=== PATIENT | female | born 1935 | race Caucasian/White ===

== ENCOUNTER 2019-06-25 23:11 | Observation (INO) | payer MEDICARE, OTHER ==
[2019-06-25] MEDS ORDERED: LIDOCAINE 1% INJ-PF (10 MG/ML) 30 ML SDV INJ ONE (23:32)
--- NOTE | 2019-06-25 23:38 | ER Document Report ---
ED Fall - General Chief Complaint: Facial Injury Stated Complaint: FALL Time Seen by Provider: 06/25/19 23:24 TRAVEL OUTSIDE OF THE [place] IN LAST 30 DAYS: No - HPI Notes: Patient is a 84-year-old female that presents to the emergency department for chief complaint of fall. Patient lives at home independently. She states she was sitting watching TV and believes she got up to go somewhere but cannot completely recall the events of the evening. Patient states that she woke up on the floor in the kitchen but is not sure how she got there. Patient does not remember falling or passing out. She remembers sitting in the chair and attempting to get up and walk with her walker. She is complaining of pain over her left eye and in her chin. She is not sure when her last tetanus vaccine was. She denies headache, vision changes, numbness, weakness, upper or lower extremity pain, chest pain and shortness of breath. She denies being on any blood thinning medications. Past Medical History: Hypertension, hyperlipidemia Past Surgical History: SBO Social History: Lives at home. Denies alcohol and tobacco use Family History: Reviewed and noncontributory for presenting illness Allergies: Reviewed, see documented allergy list. REVIEW OF SYSTEMS: CONSTITUTIONAL : No fever No chills No diaphoresis No recent illness EENT: No vision changes No congestion No sore throat Facial pain CARDIOVASCULAR: No chest pain No palpitations RESPIRATORY: No shortness of breath No cough No difficulty breathing GASTROINTESTINAL: No abdominal pain No nausea No vomiting No diarrhea GENITOURINARY: No dysuria No hematuria No difficulty urinating MUSCULOSKELETAL: No back pain No leg pain No arm pain SKIN: No rashes No lesions LYMPHATIC: No swollen, enlarged glands. NEUROLOGICAL: No lightheadedness No headache No weakness No paresthesias PSYCHIATRIC: No anxiety No depression PHYSICAL EXAMINATION: Vital signs reviewed, nursing noted reviewed. GENERAL: Well-appearing, well-nourished and in no acute distress. HEAD: Atraumatic, normocephalic. EYES: Periorbital ecchymosis on the left. No pain with ocular movement. PERRLA. Extraocular movements intact, sclera anicteric, conjunctiva are normal. ENT: Contusion to left eyebrow with tenderness, nasal bridge tenderness. No nasal septal hematoma. No epistaxis. No facial bone laxity. No dental fr actures. Nares patent, oropharynx clear without exudates. Moist mucous membranes. NECK:c-collar in place, no midline tenderness, supple without lymphadenopathy LUNGS:no chest wall tenderness, Breath sounds clear to auscultation bilaterally and equal. No wheezes rales or rhonchi. HEART: Regular rate and rhythm without murmurs ABDOMEN: Soft, nontender, normoactive bowel sounds. No rebound, guarding, or rigidity. No masses appreciated. EXTREMITIES: pelvis stable, no hip tenderness, no longbone deformity or tenderness, good range of motion, no pitting or edema. NEUROLOGICAL: No focal neurological deficits. Moves all extremities spontaneously Motor and sensory grossly intact on exam. PSYCH: Normal mood, normal affect. SKIN: Warm, Dry, normal turgor, 2.0 cm full-thickness stellate laceration to chin with mild bleeding - Related data Allergies/Adverse Reactions: ciprofloxacin [From Cipro] Adverse Reaction (Intermediate, Verified 04/10/15 02:30) Change in behavior ciprofloxacin HCl [From Cipro] Adverse Reaction (Intermediate, Verified 04/10/15 02:30) Change in behavior Past Medical History - Social History Smoking Status: Unknown if Ever Smoked Family History: Reviewed & Not Pertinent Patient has suicidal ideation: No Patient has homicidal ideation: No - Past Medical History Cardiac Medical History: Reports: Hx Hypercholesterolemia, Hx Hypertension Denies: Hx Heart Attack Pulmonary Medical History: Denies: Hx Asthma Neurological Medical History: Denies: Hx Cerebrovascular Accident, Hx Seizures Renal/ Medical History: Denies: Hx Peritoneal Dialysis Malignancy Medical History: Reports: Hx Colorectal Cancer GI Medical History: Denies: Hx Hepatitis, Hx Hiatal Hernia, Hx Ulcer Psychiatric Medical History: Reports: Hx Depression Infectious Medical History: Denies: Hx Hepatitis Past Surgical History: Reports: Hx Abdominal Surgery - colon, Hx Bowel Surgery, Hx Hysterectomy. Denies: Hx Mastectomy, Hx Open Heart Surgery, Hx Pacemaker - Immunizations Immunizations up to date: Yes Hx Diphtheria, Pertussis, Tetanus Vaccination: No - <10 yrs Physical Exam - Vital signs Vitals: Resp BP 17 173/67 H 06/25/19 23:26 06/25/19 23:26 Course - Re-evaluation Re-evalutation: 06/25/19 23:39 Vitals reviewed. Nursing notes reviewed. Patient is alert and mentating. She has no focal neurologic deficits. She does not recall how she fell or the events that led up to her getting into the kitchen. This is concerning for possible closed head injury or syncope. Patient placed on telemetry monitoring. She currently denies wanting any medication for pain. Tetanus vaccine will be updated. 06/26/19 01:10 Patient's work-up is unremarkable. She has no acute anemia. Patient's renal function is stable without severe lecture lites derangements. She does have a negative troponin. Her EKG shows sinus rhythm without significant change from prior. It is unclear at this time if patient had a syncopal episode which caused her to fall or is amnestic from her closed head injury. There are no signs of intracranial hemorrhage or facial/cervical spine fractures. Cervical collar has been removed. At this point patient will be admitted to the hospital for telemetry monitoring for possible syncopal event as well as close head i njury. Care discussed with Dr. Garces who accepts admission. Laboratory 06/25/19 06/26/19 06/26/19 23:45 00:15 00:15 WBC 11.5 H RBC 4.27 Hgb 13.3 Hct 39.8 MCV 93 MCH 31.2 MCHC 33.5 RDW 13.0 Plt Count 223 Seg Neutrophils % 75.6 Lymphocytes % 14.2 Monocytes % 7.4 Eosinophils % 2.4 Basophils % 0.4 Absolute Neutrophils 8.7 H Absolute Lymphocytes 1.6 Absolute Monocytes 0.9 Absolute Eosinophils 0.3 Absolute Basophils 0.0 Sodium 137.2 Potassium 3.4 L Chloride 105 Carbon Dioxide 22 Anion Gap 10 BUN 19 Creatinine 0.87 Est GFR ( Amer) > 60 Est GFR (Non-Af Amer) > 60 Glucose 120 H Calcium 8.2 L Total Bilirubin 0.3 Direct Bilirubin 0.2 Neonat Total Bilirubin Not Reportable Neonat Direct Bilirubin Not Reportable Neonat Indirect Bili Not Reportable AST 19 ALT 13 Alkaline Phosphatase 85 Troponin I Total Protein 6.3 Albumin 3.8 Urine Color STRAW Urine Appearance CLEAR Urine pH 6.0 Ur Specific [place] 1.006 Urine Protein NEGATIVE Urine Glucose (UA) NEGATIVE Urine Ketones NEGATIVE Urine Blood NEGATIVE Urine Nitrite NEGATIVE Urine Bilirubin NEGATIVE Urine Urobilinogen NEGATIVE Ur Leukocyte Esterase NEGATIVE Urine WBC (Auto) 2 Urine Bacteria (Auto) TRACE Squamous Epi Cells Auto <1 Urine Mucus (Auto) RARE Urine Ascorbic Acid NEGATIVE 06/26/19 00:15 WBC RBC Hgb Hct MCV MCH MCHC RDW Plt Count Seg Neutrophils % Lymphocytes % Monocytes % Eosinophils % Basophils % Absolute Neutrophils Absolute Lymphocytes Absolute Monocytes Absolute Eosinophils Absolute Basophils Sodium Potassium Chloride Carbon Dioxide Anion Gap BUN Creatinine Est GFR ( Amer) Est GFR (Non-Af Amer) Glucose Calcium Total Bilirubin Direct Bilirubin Neonat Total Bilirubin Neonat Direct Bilirubin Neonat Indirect Bili AST ALT Alkaline Phosphatase Troponin I < 0.012 Total Protein Albumin Urine Color Urine Appearance Urine pH Ur Specific [place] Urine Protein Urine Glucose (UA) Urine Ketones Urine Blood Urine Nitrite Urine Bilirubin Urine Urobilinogen Ur Leukocyte Esterase Urine WBC (Auto) Urine Bacteria (Auto) Squamous Epi Cells Auto Urine Mucus (Auto) Urine Ascorbic Acid Cervical Spine CT 06/25/19 23:24 IMPRESSION: 1. No evidence of acute osseous injury involving the cervical spine. 2. Mild degenerative changes of the cervical spine as described above. Facial Bones CT 06/25/19 23:24 IMPRESSION: 1. No acute facial fractures Head CT 06/25/19 23:24 IMPRESSION: 1. There is no evidence of acute intracranial pathology. 2. 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 3. Soft tissue swelling anterior to the left maxilla. A nondisplaced left nasal bone fracture is not excluded. Chest X-Ray 06/25/19 23:31 IMPRESSION: No evidence of acute intrathoracic disease. No significant interval change when compared to the prior study. 06/26/19 02:38 - Vital Signs Vital signs: Temp Pulse Resp BP Pulse Ox 18 174/69 H 06/26/19 01:01 06/26/19 01:01 - Laboratory Result Diagrams: 06/26/19 00:15 06/26/19 00:15 Laboratory results interpreted by me: 06/26/19 06/26/19 00:15 00:15 WBC 11.5 H Absolute Neutrophils 8.7 H Potassium 3.4 L Glucose 120 H Calcium 8.2 L - EKG Interpretation by Me Additional EKG results interpreted by me: 06/26/19 01:11 Interpreted by myself [id number]: Normal sinus rhythm, rate 81, normal axis, no significant change from 05/25/2013, no STEMI. Procedures - Laceration/Wound Repair Face Time completed: 02:37 Wound length (cm): 2.0 Wound's Depth, Shape: Stellate Laceration pre-procedure: Sterile PPE donned, Sterile drapes applied, Shur-Clens applied Anesthetic type: 2% Lidocaine Volume Anesthetic (mLs): 2 Wound explored: Clean Irrigated w/ Saline (mLs): 100 Wound Repaired With: Sutures Suture Size/Type: 5:0, Nylon Number of Sutures: 2 - simple interrupted Layer Closure?: No Complications: No Discharge - Discharge Clinical Impression: Chin laceration Qualifiers: Encounter type: initial encounter Qualified Code(s): S01.81XA - Laceration without foreign body of other part of head, initial encounter Facial contusion Qualifiers: Encounter type: initial encounter Qualified Code(s): S00.83XA - Contusion of other part of head, initial encounter Closed head injury Qualifiers: Encounter type: initial encounter Qualified Code(s): S09.90XA - Unspecified injury of head, initial encounter Syncope Qualifiers: Syncope type: unspecified Qualified Code(s): R55 - Syncope and collapse Condition: Stable Disposition: ADMITTED OBSERVATION Admitting Provider: Dez (Hospitalist) Unit Admitted: Telemetry
[2019-06-25] MEDS ORDERED: DIPH/PERTUSS(ACELL)/TETANUS VAC/PF 0.5 ML SYR (>=10YO) IM ONE (23:39)
[2019-06-26 00:03] LABS: APPEARANCE,URINE CLEAR; BILIRUBIN,URINE NEGATIVE (NEGATIVE); COLOR,URINE STRAW; GLUCOSE, URINE NEGATIVE (NEGATIVE); KETONES,URINE NEGATIVE (NEGATIVE); LEUKOCYTE ESTERASE,URINE NEGATIVE (NEGATIVE); NITRITE,URINE NEGATIVE (NEGATIVE); PROTEIN,URINE NEGATIVE (NEGATIVE); URINE SPECIFIC GRAVITY 1.006; UROBILINOGEN,URINE NEGATIVE mg/dL (<2.0)
--- NOTE | 2019-06-26 00:11 | RADIOLOGY REPORT (SQ) ---
EXAM DESCRIPTION: X-ray single view chest. CLINICAL HISTORY: 84 years Female, syncope COMPARISON: 10/02/2014 TECHNIQUE: Single portable x-ray view of the chest performed on 06/25/2019 at 11:57 PM FINDINGS: The lungs are well expanded and are clear. There is no evidence of a pneumothorax. The cardiac silhouette is normal in size and configuration. The mediastinal contours are normal. No acute osseous abnormality is identified. No focal soft tissue abnormalities are seen. Lines and tubes: None. IMPRESSION: No evidence of acute intrathoracic disease. No significant interval change when compared to the prior study.
--- NOTE | 2019-06-26 00:29 | RADIOLOGY REPORT (SQ) ---
EXAM: CT head without IV contrast CLINICAL DATA: 84-year-old female status post trauma TECHNICAL DATA: Multiple axial CT images of the brain were performed followed by sagittal and coronal reconstructed images. The CT study is performed according to ALARA (as low as reasonably achievable) or ALARA/IMAGE GENTLY, with automatic adjustment of mA and/or kV according to patient size. Performed on: 06/26/2019 at 12:11 AM Comparisons: 05/25/2013. FINDINGS: There is no evidence of mass, acute mass effect or midline shift. There are no acute extra-axial fluid collections. There is no evidence of acute intracranial hemorrhage. The cerebral sulci and ventricles are prominent consistent with mild to moderate cerebral volume loss. There are scattered areas of decreased attenuation within the subcortical and periventricular white matter most likely due to mild chronic microangiopathy. There are old small bilateral lacunar infarcts particularly in the left basal ganglia. There is patchy mucosal thickening of the paranasal sinuses. The mastoid air cells are clear. The orbital contents are grossly unremarkable. A nondisplaced left nasal bone fracture is not excluded. There is mild soft tissue swelling anterior to the left maxilla. There are calcifications along the cavernous carotid arteries IMPRESSION: 1. There is no evidence of acute intracranial pathology. 2. 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 3. Soft tissue swelling anterior to the left maxilla. A nondisplaced left nasal bone fracture is not excluded.
[2019-06-26 00:32] LABS: ABSOLUTE EOSINOPHILS # (AUTO) 0.3 10^3/uL (0.0-0.6); ABSOLUTE LYMPHOCYTES (AUTO) 1.6 10^3/uL (0.5-4.7); ABSOLUTE MONOCYTES (AUTO) 0.9 10^3/uL (0.1-1.4); ABSOLUTE NEUT (AUTO) 8.7 10^3/uL (1.7-8.2); BASOPHILS % (AUTO) 0.4 % (0-2); EOSINOPHILS % (AUTO) 2.4 % (0-6); HEMATOCRIT 39.8 % (36.0-47.0); HEMOGLOBIN 13.3 g/dL (12.0-15.5); LYMPHOCYTES % (AUTO) 14.2 % (13-45); MEAN CORPUSCULAR HEMOGLOBIN 31.2 pg (27.0-33.4); MEAN CORPUSCULAR HGB CONC 33.5 g/dL (32.0-36.0); MEAN CORPUSCULAR VOLUME 93 fl (80-97); MONOCYTES % (AUTO) 7.4 % (3-13); PLATELET COUNT 223 10^3/uL (150-450); RED BLOOD COUNT 4.27 10^6/uL (3.72-5.28); SEGMENTED NEUTROPHILS % (AUTO) 75.6 % (42-78); TOTAL CELLS COUNTED % (AUTO) 100 %; WHITE BLOOD COUNT 11.5 10^3/uL (4.0-10.5)
--- NOTE | 2019-06-26 00:36 | RADIOLOGY REPORT (SQ) ---
EXAM DESCRIPTION: [facility]: CT MAXILLOFACIAL WITHOUT IV CONTRAST CLINICAL HISTORY: 84 years Female; trauma TECHNIQUE: High resolution axial CT of the face without contrast, with sagittal and coronal reformatted images. All CT scans at this facility use dose modulation, iterative reconstruction, and/or weight based dosing when appropriate to reduce radiation dose to as low as reasonably achievable. COMPARISON: None. FINDINGS: Facial bones are intact. Mandible is intact. Mucosal thickening is noted in the maxillary sinuses and ethmoid air cells. Mastoids are clear. Both globes are aphakic. No retro-orbital hematoma. IMPRESSION: 1. No acute facial fractures
--- NOTE | 2019-06-26 00:43 | RADIOLOGY REPORT (SQ) ---
EXAM: CT cervical spine without intravenous contrast CLINICAL DATA: 84-year-old female. TECHNICAL DATA: Multiple high-resolution thin axial CT images were performed through the status post trauma spine followed by sagittal and coronal reconstructed images. The CT study is performed according to ALARA (as low as reasonably achievable) or ALARA/IMAGE GENTLY, with automatic adjustment of mA and/or kV according to patient size. Performed on: 06/26/2019 at 12:21 AM COMPARISONS: None. FINDINGS: The cervical vertebrae are normal in height. There is normal alignment of the vertebrae. There is mild to moderate disc space narrowing throughout the cervical spine most pronounced at C3-C4 and C6-C7. Bone mineralization is within normal limits. The atlanto-axial articulation is preserved and the odontoid process is intact. There is normal alignment of the facet joints on the parasagittal images. There are mild degenerative changes of the facet joints. There is no evidence of acute fracture or subluxation. There is mild C5-C6 canal stenosis secondary to a disc osteophyte complex. There is right C5-C6 neural foraminal stenosis secondary to uncovertebral joint and facet joint hypertrophy. The paravertebral and paraspinal soft tissues are unremarkable. The lung apices are clear. IMPRESSION: 1. No evidence of acute osseous injury involving the cervical spine. 2. Mild degenerative changes of the cervical spine as described above.
[2019-06-26 00:56] LABS: ALBUMIN 3.8 g/dL (3.5-5.0); ALKALINE PHOSPHATASE 85 U/L (38-126); ANION GAP 10 (5-19); ASPARTATE AMINO TRANSFERASE 19 U/L (14-36); BILIRUBIN,DIRECT 0.2 mg/dL (0.0-0.4); BILIRUBIN,TOTAL 0.3 mg/dL (0.2-1.3); BLOOD UREA NITROGEN 19 mg/dL (7-20); CALCIUM 8.2 mg/dL (8.4-10.2); CARBON DIOXIDE 22 mmol/L (22-30); CHLORIDE 105 mmol/L (98-107); GLUCOSE 120 mg/dL (75-110); POTASSIUM 3.4 mmol/L (3.6-5.0); TOTAL PROTEIN 6.3 g/dL (6.3-8.2)
[2019-06-26] MEDS ORDERED: MAGNESIUM HYDROXIDE SUSP 30 ML UDCUP PO PRN (01:38)
[2019-06-26] MEDS ORDERED: ACETAMINOPHEN 325 MG TABLET PO PRN (01:38)
[2019-06-26] MEDS ORDERED: MAG HYDROX/AL HYDROX/SIMETH SUSP 30 ML UDCUP PO PRN (01:38)
[2019-06-26] MEDS ORDERED: ONDANSETRON HCL INJ/PF 4 MG/2 ML SDV IV PRN (01:38)
[2019-06-26] MEDS ORDERED: LIDOCAINE 2% INJ (20 MG/ML) 20 ML MDV ONE (01:53)
[2019-06-26] MEDS ORDERED: DIPH/PERTUSS(ACELL)/TETANUS VAC/PF 0.5 ML SYR (>=10YO) IM ONE (04:15)
[2019-06-26] MEDS: NORMAL SALINE 1000 ML 1,000 ML IV PRN ×2 (05:54→19:00)
--- NOTE | 2019-06-26 06:19 | PDOC H&P ---
History of Present Illness Admission Date/PCP: 06/26/19 01:29 MICHELLE VAZQUEZ MD Patient complains of: Fall and head injury History of Present Illness: SHADI BABCOCK is a 84 year old female with history of multiple medical problems that will be mentioned below who presented to the emergency room with acute onset of fall with subsequent head injury and left periorbital and chin contusion with chin laceration that was repaired in the ER with 2 sutu res. The patient was apparently in her kitchen and hit her garbage can when she later noted blood on the floor. She does not remember certain. And therefore she likely had a brief syncopal episode. She denies any paresthesias or focal muscle weakness or chest pain or dyspnea or palpitations prior to her fall. No nausea vomiting or abdominal pain. No other bleeding diathesis. Upon presentation to the emergency room, blood pressure was 173/67 with a pulse 76 respiratory rate of 17, temperature 97.6 later and pulse 7093% on room air. Labs revealed WBC of 11.5 with absolute neutrophils of 8.7 with normal hemoglobin hematocrit. MP was remarkable for hypokalemia of 3.4. UA was unremarkable. EKG showed normal sinus rhythm with a rate of 81 with Q waves in lead III. Portable chest x-ray showed no acute cardiopulmonary disease. Head CT scan revealed no acute intracranial pathology but showed mild to moderate cerebral atrophy with chronic microangiopathy and old bilateral lacunar in farctions with soft tissue swelling anterior to the maxilla with nondisplaced left nasal bone fracture is not excluded. A facial bone CT however showed no acute facial fracture. C-spine CT showed mild degenerative changes of the C- spine with no acute osseous injury. The patient had her DTaP updated. She will be admitted to an observation telemetry bed for further evaluation and management Past Medical History Cardiac Medical History: Reports: Hyperlipidema, Hypertension Denies: Myocardial Infarction Pulmonary Medical History: Denies: Asthma Neurological Medical History: Denies: Seizures Malignancy Medical History: Reports: Colorectal Cancer GI Medical History: Denies: Hepatitis, Hiatal Hernia Psychiatric Medical History: Reports: Depression Hematology: Denies: Anemia, Sickle Cell Disease Past Surgical History Past Surgical History: Reports: Hysterectomy Denies: Amputation, Mastectomy, Pacemaker Social History Smoking Status: Never Smoker Frequency of Alcohol Use: None Hx Recreational Drug Use: No Hx Prescription Drug Abuse: No Family History Family History: Malignancy - Brother with colon cancer and sister with breast cancer Parental Family History Reviewed: Yes Children Family History Reviewed: Yes Sibling(s) Family History Reviewed.: Yes Medication/Allergy Home Medications: Amitriptyline HCl [Elavil 50 mg Tablet] 1 tab PO QHS 04/10/15 Aspirin [Aspirin 81 mg Chewable Tablet] 1 tab PO DAILY 04/10/15 Cephalexin [Keflex 250 MG Capsule] 250 mg PO .CLARIFY DOSE QHS 04/10/15 Diazepam [Valium 5 mg Tablet] 5 mg PO QHS 04/10/15 Diltiazem HCl [Diltiazem 24Hr ER (LA)] 300 mg PO DAILY 04/10/15 Paroxetine HCl 20 tab PO .CLARIFY DOSE QHS 04/10/15 Perphenazine 1 tab PO .CLARIFY DOSE QHS 04/10/15 Simvastatin [Zocor 10 mg Tablet] 10 tab PO QHS 04/10/15 Allergies/Adverse Reactions: ciprofloxacin [From Cipro] Adverse Reaction (Intermediate, Verified 04/10/15 02:30) Change in behavior ciprofloxacin HCl [From Cipro] Adverse Reaction (Intermediate, Verified 04/10/15 02:30) Change in behavior Review of Systems Review of Systems: As per history of present illness. All pertinent systems were reviewed above. Constitutional, HEENT, cardiovascular, respiratory, GI, , musculoskeletal, neuro, psychiatric, endocrine, integumentary and hematologic systems were reviewed and are otherwise negative/unremarkable except for positive findings mentioned above in the HPI. Physical Exam Vital Signs: Temp Pulse Resp BP Pulse Ox 97.6 F 81 20 166/71 H 93 06/26/19 05:11 06/26/19 05:11 06/26/19 05:11 06/26/19 05:11 06/26/19 05:11 Intake & Output 06/24/19 06/25/19 06/26/19 06:59 06:59 06:59 Weight 69.1 kg Exam: Generally: Pleasant elderly female in no acute distress Vital signs-as listed Head - normocephalic with left periorbital, nasal and left cheek and contusions as well as mid chin laceration status post repair with 2 sutures.. Pupils - equal, round and reactive to light and accommodation. Extraocular movements are intact. No scleral icterus. Oropharynx - moist mucous membranes and tongue. No pharyngeal erythema or exudate. Neck - supple. No JVD. Carotid pulses 2+ bilaterally. No carotid bruits. No palpable thyromegaly or lymphadenopathy. Cardiovascular - regular rate and rhythm. Normal S1 and S2. No murmurs, gallops or rubs. Lungs - clear to auscultation bilaterally. Abdomen - soft and nontender. Positive bowel sounds. No palpable organomegaly or masses. Extremities - no pitting edema, clubbing or cyanosis. Neuro - grossly non-focal. Skin - no rashes. Breast, pelvic and rectal - deferred Results Laboratory Results: 06/26/19 00:15 06/26/19 00:15 06/25/19 06/26/19 06/26/19 23:45 00:15 00:15 WBC 11.5 H RBC 4.27 Hgb 13.3 Hct 39.8 MCV 93 MCH 31.2 MCHC 33.5 RDW 13.0 Plt Count 223 Seg Neutrophils % 75.6 Lymphocytes % 14.2 Monocytes % 7.4 Eosinophils % 2.4 Basophils % 0.4 Absolute Neutrophils 8.7 H Absolute Lymphocytes 1.6 Absolute Monocytes 0.9 Absolute Eosinophils 0.3 Absolute Basophils 0.0 Sodium 137.2 Potassium 3.4 L Chloride 105 Carbon Dioxide 22 Anion Gap 10 BUN 19 Creatinine 0.87 Est GFR ( Amer) > 60 Est GFR (Non-Af Amer) > 60 Glucose 120 H Calcium 8.2 L Total Bilirubin 0.3 AST 19 Alkaline Phosphatase 85 Total Protein 6.3 Albumin 3.8 TSH Urine Color STRAW Urine Appearance CLEAR Urine pH 6.0 Ur Specific [place] 1.006 Urine Protein NEGATIVE Urine Glucose (UA) NEGATIVE Urine Ketones NEGATIVE Urine Blood NEGATIVE Urine Nitrite NEGATIVE Ur Leukocyte Esterase NEGATIVE Urine WBC (Auto) 2 06/26/19 00:15 WBC RBC Hgb Hct MCV MCH MCHC RDW Plt Count Seg Neutrophils % Lymphocytes % Monocytes % Eosinophils % Basophils % Absolute Neutrophils Absolute Lymphocytes Absolute Monocytes Absolute Eosinophils Absolute Basophils Sodium Potassium Chloride Carbon Dioxide Anion Gap BUN Creatinine Est GFR ( Amer) Est GFR (Non-Af Amer) Glucose Calcium Total Bilirubin AST Alkaline Phosphatase Total Protein Albumin TSH 1.34 Urine Color Urine Appearance Urine pH Ur Specific [place] Urine Protein Urine Glucose (UA) Urine Ketones Urine Blood Urine Nitrite Ur Leukocyte Esterase Urine WBC (Auto) 06/26/19 00:15 Troponin I < 0.012 Impressions: Cervical Spine CT 06/25/19 23:24 IMPRESSION: 1. No evidence of acute osseous injury involving the cervical spine. 2. Mild degenerative changes of the cervical spine as described above. Facial Bones CT 06/25/19 23:24 IMPRESSION: 1. No acute facial fractures Head CT 06/25/19 23:24 IMPRESSION: 1. There is no evidence of acute intracranial pathology. 2. 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 3. Soft tissue swelling anterior to the left maxilla. A nondisplaced left nasal bone fracture is not excluded. Chest X-Ray 06/25/19 23:31 IMPRESSION: No evidence of acute intrathoracic disease. No significant interval change when compared to the prior study. Assessment and Plan - Diagnosis (1) Syncope Qualifiers: Syncope type: unspecified Qualified Code(s): R55 - Syncope and collapse Is this a current diagnosis for this admission?: Yes Plan: The patient was admitted to an observation medically monitored bed. Will check her orthostatics q.12 hours. Will obtain a bilateral carotid Doppler and 2D echo. The patient will be gently hydrated with IV normal saline and monitored for arrhythmias. Differential diagnosis would include neuraly mediated syncope, cardiogenic, arrhythmias related, orthostatic hypotension and less likely hypoglycemia. (2) Closed head injury Qualifiers: Encounter type: initial encounter Qualified Code(s): S09.90XA - Unspecified injury of head, initial encounter Is this a current diagnosis for this admission?: Yes Plan: The patient had syncope with head injury and and facial contusions that would require further observation for potential concussion. (3) Facial contusion Qualifiers: Encounter type: initial encounter Qualified Code(s): S00.83XA - Contusion of other part of head, initial encounter Is this a current diagnosis for this admission?: Yes Plan: In the setting of syncope, she will need further monitoring for the possibility of cerebral concussion. (4) Depression Is this a current diagnosis for this admission?: Yes Plan: We will continue Paxil and hold off amitriptyline and cut down Valium dose given for anxiety and insomnia. (5) Hypertension Is this a current diagnosis for this admission?: Yes Plan: We will continue diltiazem ER (6) DVT prophylaxis Is this a current diagnosis for this admission?: Yes Plan: Subcutaneous Lovenox - Time Time Spent with patient: 35 or more minutes Medications reviewed and adjusted accordingly: Yes Anticipated discharge: Home Within: within 24 hours - Inpatient Certification Post Hospital Care: D/C or Transfer Summary - Plan Summary Plan Summary: The plan of care was discussed in details with the patient. I answered all questions. The patient agreed to proceed with the above-mentioned plan. The patient is presumably full code. This note was created by [employer] dictating software and may contain typo errors that may have not been proofread.
[2019-06-26 06:40] LABS: ANION GAP 11 (5-19); BLOOD UREA NITROGEN 17 mg/dL (7-20); CALCIUM 9.4 mg/dL (8.4-10.2); CARBON DIOXIDE 26 mmol/L (22-30); CHLORIDE 103 mmol/L (98-107); CREATINE KINASE 117 U/L (30-135); GLUCOSE 113 mg/dL (75-110); POTASSIUM 3.7 mmol/L (3.6-5.0)
[2019-06-26 06:50] LABS: CREATINE KINASE MB 2.23 ng/mL (<4.55)
[2019-06-26 06:53] LABS: TROPONIN I < 0.012 ng/mL
[2019-06-26] MEDS: FAMOTIDINE 20 MG TABLET PO SCH ×2 (09:14→22:43)
[2019-06-26] MEDS: ENOXAPARIN SODIUM INJ 40 MG/0.4 ML DISP.SYRIN SUBCUT SCH (09:14)
--- NOTE | 2019-06-26 09:32 | Progress Note ---
Provider Note Provider Note: June 26, 2019-patient admitted earlier this a.m. for syncope. Awaiting cardiology consultation. Patient with no concerns or complaints at this time.
--- NOTE | 2019-06-26 10:12 | EKG REPORT ---
SEVERITY:- NORMAL ECG - SINUS RHYTHM : Confirmed by: Nancy Love MD 26-Jun-2019 10:11:38
--- NOTE | 2019-06-26 12:31 | RADIOLOGY REPORT (SQ) ---
EXAM DESCRIPTION: CAROTID DOPPLER COMPLETED DATE/TIME: 06/26/2019 12:14 pm REASON FOR STUDY: Syncope COMPARISON: None. TECHNIQUE: Grayscale ultrasound, Doppler velocity and spectra, and color Doppler images acquired of the extra-cranial carotid and vertebral arteries. Images stored on PACS. LIMITATIONS: None. FINDINGS: RIGHT CAROTID CCA Velocities: Within normal limits. ICA Velocities Peak systolic 1.59 m/s. End diastolic 0.24 m/s. Proximal ICA/CCA peak systolic ratio 1.7. Mild calcified plaque in the common carotid artery and carotid bulb. LEFT CAROTID CCA Velocities: Within normal limits. ICA Velocities Peak systolic 0.85 m/s. End diastolic 0.24 m/s. Proximal ICA/CCA peak systolic ratio 0.8. Spectra normal. No significant plaque. VERTEBRAL ARTERIES: Antegrade flow. Normal waveforms. SUBCLAVIAN ARTERIES: No finding. OTHER: No other significant finding. IMPRESSION: 50 to 69% narrowing in the right internal carotid artery. Based on velocities in graysc julius images this is closer to 50%. No hemodynamically significant stenosis on the left. COMMENT: Quality ID #[id number]: Velocity criteria are extrapolated from the diameter data as defined by t he Society of Radiologists in Ultrasound Consensus Conference. Radiology 2003: 229; 340-346. TECHNICAL DOCUMENTATION: JOB ID: [id number] [employer]- All Rights Reserved Reading location - IP/workstation name: [email or web address]
[2019-06-26 12:57] LABS: CREATINE KINASE MB 2.03 ng/mL (<4.55)
[2019-06-26 13:02] LABS: TROPONIN I < 0.012 ng/mL
[2019-06-26] MEDS: DILTIAZEM HCL 180 MG CAPSULE.CR PO SCH (13:24)
[2019-06-26] MEDS: DILTIAZEM HCL 120 MG CAP.SR.24H PO SCH (13:24)
[2019-06-26 19:06] LABS: CREATINE KINASE MB 1.88 ng/mL (<4.55)
[2019-06-26 19:09] LABS: TROPONIN I < 0.012 ng/mL
--- NOTE | 2019-06-26 21:19 | XCELERA REPORT ---
[address] [address] Transthoracic Echocardiogram Report Name: SHADI BABCOCK Age: 84 yrs Gender: Female : 1935 Patient Status: Inpatient Patient Location: [address] [place], [place] [id number] Study Date: 06/26/2019 09:52 AM Height: 63 in Weight: 152 lb BSA: 1.7 m2 Procedure: A two-dimensional transthoracic echocardiogram with color flow Doppler was performed. Study Quality: Fair. Reason For Study: Syncope History: SYNCOPE. Ordering Physician: DICK OLIVAS Performed By: Cleopatra Blue Interpretation Summary The left ventricle is normal in size. There is normal left ventricular wall thickness. The left ventricular ejection fraction is within normal limits. LV EF is 65% Doppler measurements suggest impaired left ventricular relaxation, which is associated with grade I/IV or mild diastolic dysfunction The left ventricular wall motion is normal. There is no thrombus. No ASD ,VSD ,or PFO seen The right ventricle is normal in size and function. The right atrium is normal. The left atrial size is normal. There is no evidence of mitral valve prolapse. There is no vegetation seen on the mitral valve. There is no mitral valve stenosis. There is no mitral regurgitation noted. There is no aortic valvular vegetation. There is no aortic valve stenosis There is no LVOT obstruction. There is a mild amount of aortic regurgitation There is no tricuspid stenosis. There is a trace amount of tricuspid regurgitation There is mild pulmonary hypertension by echo RSVP is equal to 34 mm of Hg , with RA mean of 10. There is no pulmonic valvular stenosis. There is a trace amount of pulmonic regurgitation The aortic root is normal size. The inferior vena cava appeared normal and decreased > 50% with respiration (RAP 5-10 mmHg) There is no pericardial effusion. MMode/2D Measurements & Calculations RVDd: 2.8 cm LVIDd: 3.9 cm FS: 40.4 % Ao root diam: 2.6 cm IVSd: 1.0 cm LVIDs: 2.3 cm EDV(Teich): 66.7 ml Ao root area: 5.2 cm2 LVPWd: 1.0 cm ESV(Teich): 18.9 ml LA dimension: 3.1 cm EF(Teich): 71.7 % Doppler Measurements & Calculations MV E max grecia: MV P1/2t max grecia: Ao V2 max: AI max grecia: 101.7 cm/sec 103.2 cm/sec 207.5 cm/sec 331.2 cm/sec MV A max grecia: MV P1/2t: 85.0 msec Ao max PG: AI max P.3 cm/sec MVA(P1/2t): 2.6 cm2 17.2 mmHg 43.9 mmHg MV E/A: 0.76 MV dec slope: AI dec slope: 203.9 cm/sec2 355.6 cm/sec2 AI P1/2t: MV dec time: 0.27 sec 475.8 msec LV V1 max PG: PA V2 max: TR max grecia: AV P1/2t-pr_phl: 6.4 mmHg 93.8 cm/sec 247.0 cm/sec 475.8 msec LV V1 max: PA max P.5 mmHg TR max P.4 cm/sec 24.4 mmHg MV P1/2t-pr_phl: 85.0 msec Left Ventricle The left ventricle is normal in size. There is normal left ventricular wall thickness. The left ventricular ejection fraction is within normal limits. LV EF is 65%. Doppler measurements suggest impaired left ventricular relaxation, which is associated with grade I/IV or mild diastolic dysfunction. The left ventricular wall motion is normal. There is no thrombus. No ASD ,VSD ,or PFO seen. Right Ventricle The right ventricle is normal in size and function. Atria The right atrium is normal. The left atrial size is normal. Mitral Valve There is no evidence of mitral valve prolapse. There is no vegetation seen on the mitral valve. There is no mitral valve stenosis. There is no mitral regurgitation noted. Aortic Valve There is no aortic valvular vegetation. There is no aortic valve stenosis. There is no LVOT obstruction. There is a mild amount of aortic regurgitation. Tricuspid Valve There is no tricuspid stenosis. There is a trace amount of tricuspid regurgitation. There is mild pulmonary hypertension by echo. RSVP is equal to 34 mm of Hg , with RA mean of 10. Pulmonic Valve There is no pulmonic valvular stenosis. There is a trace amount of pulmonic regurgitation. Great Vessels The aortic root is normal size. The inferior vena cava appeared normal and decreased > 50% with respiration (RAP 5-10 mmHg). Effusions There is no pericardial effusion. : DICK OLIVAS > Nancy Love
[2019-06-26] MEDS ORDERED: AMITRIPTYLINE HCL 50 MG TABLET PO SCH (22:00)
[2019-06-26] MEDS ORDERED: PAROXETINE HCL 20 MG TABLET PO SCH (22:00)
[2019-06-26] MEDS: DIAZEPAM 5 MG TABLET PO SCH (22:43)
[2019-06-27 06:12] LABS: ABSOLUTE BASOPHILS # (AUTO) 0.1 10^3/uL (0.0-0.2); ABSOLUTE EOSINOPHILS # (AUTO) 0.3 10^3/uL (0.0-0.6); ABSOLUTE LYMPHOCYTES (AUTO) 2.1 10^3/uL (0.5-4.7); ABSOLUTE MONOCYTES (AUTO) 0.8 10^3/uL (0.1-1.4); ABSOLUTE NEUT (AUTO) 4.2 10^3/uL (1.7-8.2); BASOPHILS % (AUTO) 1.2 % (0-2); EOSINOPHILS % (AUTO) 4.2 % (0-6); HEMATOCRIT 39.6 % (36.0-47.0); HEMOGLOBIN 13.5 g/dL (12.0-15.5); LYMPHOCYTES % (AUTO) 27.4 % (13-45); MEAN CORPUSCULAR HEMOGLOBIN 31.7 pg (27.0-33.4); MEAN CORPUSCULAR HGB CONC 34.1 g/dL (32.0-36.0); MEAN CORPUSCULAR VOLUME 93 fl (80-97); MONOCYTES % (AUTO) 11.2 % (3-13); PLATELET COUNT 209 10^3/uL (150-450); RED BLOOD COUNT 4.27 10^6/uL (3.72-5.28); RED CELL DISTRIBUTION WIDTH 12.9 % (11.5-14.0); TOTAL CELLS COUNTED % (AUTO) 100 %; WHITE BLOOD COUNT 7.6 10^3/uL (4.0-10.5)
[2019-06-27] MEDS: NORMAL SALINE 1000 ML 1,000 ML IV PRN (06:29)
[2019-06-27 06:31] LABS: ANION GAP 8 (5-19); BLOOD UREA NITROGEN 11 mg/dL (7-20); CALCIUM 9.1 mg/dL (8.4-10.2); CARBON DIOXIDE 29 mmol/L (22-30); CHLORIDE 105 mmol/L (98-107); GLUCOSE 121 mg/dL (75-110); POTASSIUM 4.1 mmol/L (3.6-5.0)
[2019-06-27] MEDS: DILTIAZEM HCL 120 MG CAP.SR.24H PO SCH (09:11)
[2019-06-27] MEDS: DIAZEPAM 5 MG TABLET PO SCH (09:11)
[2019-06-27] MEDS: DILTIAZEM HCL 180 MG CAPSULE.CR PO SCH (09:11)
[2019-06-27] MEDS: FAMOTIDINE 20 MG TABLET PO SCH (09:11)
[2019-06-27] MEDS: ENOXAPARIN SODIUM INJ 40 MG/0.4 ML DISP.SYRIN SUBCUT SCH (09:11)
[2019-06-27] MEDS ORDERED: LOSARTAN POTASSIUM 50 MG TABLET PO SCH (10:00)
[2019-06-27] MEDS ORDERED: (PENDING PHARMACY ID) (Diltiazem Hcl [Cartia Xt] 300 MG) PO SCH (10:00)
[2019-06-27] MEDS ORDERED: (PENDING PHARMACY ID) (Losartan/Hydrochlorothiazide [Hyzaar 50-12.5 Tablet] 1 EACH) PO SCH (10:00)
[2019-06-27] MEDS ORDERED: HYDROCHLOROTHIAZIDE 12.5 MG TABLET PO SCH (10:00)
--- NOTE | 2019-06-27 10:49 | Progress Note Acknowledgement ---
Progress Note Acknowledgement Progess Note Acknowledgement: I, the undersigned member of the medical staff with appropriate privileges and with supervisory authority over [Everett Garrett], a dependent practice allied health professional, acknowledge that I have reviewed the progress notes entered on this patient, and in my professional judgment believe that the assessment made and/or any care evidenced was appropriate
--- NOTE | 2019-06-27 10:53 | PDOC DISCHARGE SUMMARY ---
General - Admit/Disc Date/PCP Admission Date/Primary Care Provider: 06/26/19 01:29 MICHELLE VAZQUEZ MD Discharge Date: 06/27/19 - Additional Information Resuscitation Status: Full Code Discharge Diet: As Tolerated Discharge Activity: Activity As Tolerated Home Medications: Amitriptyline HCl [Elavil 50 mg Tablet] 50 mg PO QHS 06/26/19 Diazepam [Valium 5 mg Tablet] 5 mg PO Q12 06/26/19 Diltiazem HCl [Cartia Xt] 300 mg PO DAILY 06/26/19 Losartan/Hydrochlorothiazide [Hyzaar 50-12.5 Tablet] 1 each PO DAILY 06/26/19 Paroxetine HCl [Paxil 20 mg Tablet] 20 mg PO QHS 06/26/19 History of Present Illness Patient complains of: None this a.m. History of Present Illness: SHADI BABCOCK is a 84 year old female who was admitted after a fall with head injury. Hospital Course Hospital Course: Patient was admitted after reporting to the ER with history of multiple medical problems and an acute onset of fall with subsequent head injury and left periorbital and chin contusions. Patient was apparently in her kitchen hit her garbage can when she later noted blood on the floor. Patient does not remember certain the series events. Given this information we thought it was most likely she had a brief syncopal episode. Patient denied any paresthesias or focal muscle weakness at that time denied chest pain shortness of breath or any palpitations. Upon presentation to ER patient had blood pressure of 173/67 and a pulse of 76 and respirate of 17. Patient was admitted underwent carotid Doppler which showed a right 50% stenosis, and echocardiogram showing a LV ejection fraction of greater than 65%. Patient also underwent CT of the facial bones as well as C-spine with a probable nondisplaced left nasal bone fracture. Patient has improved additional return home at this time I will have her follow- up with primary care within 1 week for further evaluation and treatment. I will continue patient on all home medications at this time unsure of etiology of the syncopal episode. Patient might benefit from a Holter monitor to determine if arrhythmia has been a causative effect. Physical Exam Vital Signs: Temp Pulse Resp BP Pulse Ox 97.8 F 66 16 163/59 H 91 L 06/27/19 07:53 06/27/19 07:53 06/27/19 07:53 06/27/19 07:53 06/27/19 07:53 Intake & Output 06/26/19 06/27/19 06/28/19 06:59 06:59 06:59 Intake Total 3118 Balance 3118 Weight 69.1 kg 70.3 kg 70.8 kg General appearance: PRESENT: no acute distress, well-developed, well-nourished Neck exam: ABSENT: carotid bruit, JVD, lymphadenopathy, thyromegaly Respiratory exam: PRESENT: clear to auscultation nadir. ABSENT: rales, rhonchi, wheezes Cardiovascular exam: PRESENT: RRR. ABSENT: diastolic murmur, rubs, systolic murmur Pulses: PRESENT: normal dorsalis pedis pul Vascular exam: PRESENT: normal capillary refill GI/Abdominal exam: PRESENT: normal bowel sounds, soft. ABSENT: distended, guarding, mass, organolmegaly, rebound, tenderness Extremities exam: PRESENT: full ROM. ABSENT: calf tenderness, clubbing, pedal edema Neurological exam: PRESENT: alert, awake, oriented to person, oriented to place, oriented to time, oriented to situation, CN II-XII grossly intact. ABSENT: motor sensory deficit Psychiatric exam: PRESENT: appropriate affect, normal mood. ABSENT: homicidal ideation, suicidal ideation Skin exam: PRESENT: warm, other - Multiple facial bruises noted. Bruising of the nose Results Laboratory Results: 06/27/19 05:15 06/27/19 05:15 06/27/19 06/27/19 05:15 05:15 WBC 7.6 RBC 4.27 Hgb 13.5 Hct 39.6 MCV 93 MCH 31.7 MCHC 34.1 RDW 12.9 Plt Count 209 Seg Neutrophils % 56.0 Lymphocytes % 27.4 Monocytes % 11.2 Eosinophils % 4.2 Basophils % 1.2 Absolute Neutrophils 4.2 Absolute Lymphocytes 2.1 Absolute Monocytes 0.8 Absolute Eosinophils 0.3 Absolute Basophils 0.1 Sodium 141.7 Potassium 4.1 Chloride 105 Carbon Dioxide 29 Anion Gap 8 BUN 11 Creatinine 0.79 Est GFR ( Amer) > 60 Est GFR (Non-Af Amer) > 60 Glucose 121 H Calcium 9.1 Magnesium 2.0 06/26/19 06/26/19 06/26/19 00:15 05:45 05:45 Creatine Kinase 117 CK-MB (CK-2) 2.23 Troponin I < 0.012 < 0.012 06/26/19 06/26/19 06/26/19 12:04 12:04 18:20 Creatine Kinase 134 137 H CK-MB (CK-2) 2.03 Troponin I < 0.012 06/26/19 18:20 Creatine Kinase CK-MB (CK-2) 1.88 Troponin I < 0.012 Impressions: Cervical Spine CT 06/25/19 23:24 IMPRESSION: 1. No evidence of acute osseous injury involving the cervical spine. 2. Mild degenerative changes of the cervical spine as described above. Facial Bones CT 06/25/19 23:24 IMPRESSION: 1. No acute facial fractures Head CT 06/25/19 23:24 IMPRESSION: 1. There is no evidence of acute intracranial pathology. 2. 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 3. Soft tissue swelling anterior to the left maxilla. A nondisplaced left nasal bone fracture is not excluded. Chest X-Ray 06/25/19 23:31 IMPRESSION: No evidence of acute intrathoracic disease. No significant interval change when compared to the prior study. Carotid Doppler Study 06/26/19 00:00 IMPRESSION: 50 to 69% narrowing in the right internal carotid artery. Based on velocities in grayscale images this is closer to 50%. No hemodynamically significant stenosis on the left. Qualifiers - * PATIENT BEING DISCHARGED WITH ANY OF THE FOLLOWING DIAGNOSIS: No Acute Heart Failure - Is this a Heart Failure Patient?: No Plan Time Spent: Greater than 30 Minutes
[2019-06-27 12:19] VITALS: BP 125/80
== END 2019-06-27 12:59 | disposition home health service (06) ==
LOC: ER 23:11 → EH 06-26 01:29 → 3W 06-26 04:46
PROVIDERS: ADMIT Family Medicine; ATTEND Family Medicine
PROC: 0HQ1XZZ Repair Face Skin, External Approach (ICD-10-PCS; principal; 2019-06-26)
PROC: 3E0234Z Introduction of Serum, Toxoid and Vaccine into Muscle, Percutaneous Approach (ICD-10-PCS; 2019-06-26)
DX: R55 Syncope and collapse (principal); S09.90XA Unspecified injury of head, initial encounter; S01.81XA Laceration without foreign body of other part of head, initial encounter; S05.12XA Contusion of eyeball and orbital tissues, left eye, initial encounter; S00.33XA Contusion of nose, initial encounter; W18.09XA Striking against other object with subsequent fall, initial encounter; Y92.000 Kitchen of unspecified non-institutional (private) residence as the place of occurrence of the external cause; F32.9 Major depressive disorder, single episode, unspecified; I10 Essential (primary) hypertension; I65.21 Occlusion and stenosis of right carotid artery; G31.9 Degenerative disease of nervous system, unspecified; R22.0 Localized swelling, mass and lump, head; I73.89 Other specified peripheral vascular diseases; Z79.899 Other long term (current) drug therapy; Z85.038 Personal history of other malignant neoplasm of large intestine; Z79.82 Long term (current) use of aspirin; Z60.2 Problems related to living alone
CPT/HCPCS: 93005; 99285; 90471; 36415 ×2; 82553; 82550; 83735; 84443; 85025 ×2; 80048; 80053; 81001; 84484; 93306; 93880; 71045; 70450; 70486; 72125; 90715; 93010; 97530 ×2; 97116; 97161; 12011; G0378 ×3; A9270 ×13; J3490; J1650 ×2; J7030 ×2

== ENCOUNTER 2020-03-15 19:09 | Inpatient (IN) | payer MEDICARE ==
[2020-03-15 19:35] LABS: ABSOLUTE BASOPHILS # (AUTO) 0.1 10^3/uL (0.0-0.2); ABSOLUTE EOSINOPHILS # (AUTO) 0.1 10^3/uL (0.0-0.6); ABSOLUTE LYMPHOCYTES (AUTO) 1.3 10^3/uL (0.5-4.7); ABSOLUTE MONOCYTES (AUTO) 0.6 10^3/uL (0.1-1.4); ABSOLUTE NEUT (AUTO) 4.8 10^3/uL (1.7-8.2); BASOPHILS % (AUTO) 1.1 % (0-2); EOSINOPHILS % (AUTO) 1.7 % (0-6); HEMATOCRIT 41.2 % (36.0-47.0); HEMOGLOBIN 14.6 g/dL (12.0-15.5); LYMPHOCYTES % (AUTO) 19.4 % (13-45); MEAN CORPUSCULAR HEMOGLOBIN 32.4 pg (27.0-33.4); MEAN CORPUSCULAR HGB CONC 35.4 g/dL (32.0-36.0); MEAN CORPUSCULAR VOLUME 92 fl (80-97); MONOCYTES % (AUTO) 8.8 % (3-13); PLATELET COUNT 231 10^3/uL (150-450); RED CELL DISTRIBUTION WIDTH 13.6 % (11.5-14.0); TOTAL CELLS COUNTED % (AUTO) 100 %; WHITE BLOOD COUNT 6.9 10^3/uL (4.0-10.5)
[2020-03-15 20:05] LABS: ALBUMIN 4.6 g/dL (3.5-5.0); ALKALINE PHOSPHATASE 118 U/L (38-126); ANION GAP 11 (5-19); ASPARTATE AMINO TRANSFERASE 20 U/L (14-36); BILIRUBIN,TOTAL 0.6 mg/dL (0.2-1.3); BLOOD UREA NITROGEN 35 mg/dL (7-20); CALCIUM 9.7 mg/dL (8.4-10.2); CARBON DIOXIDE 30 mmol/L (22-30); CHLORIDE 93 mmol/L (98-107); GLUCOSE 143 mg/dL (75-110); POTASSIUM 3.9 mmol/L (3.6-5.0); TOTAL PROTEIN 7.9 g/dL (6.3-8.2)
[2020-03-15 20:06] LABS: APPEARANCE,URINE SLIGHTLY-CLOUDY; BILIRUBIN,URINE NEGATIVE (NEGATIVE); COLOR,URINE DARK YELLOW; GLUCOSE, URINE NEGATIVE (NEGATIVE); KETONES,URINE TRACE mg/dL (NEGATIVE); LEUKOCYTE ESTERASE,URINE NEGATIVE (NEGATIVE); NITRITE,URINE NEGATIVE (NEGATIVE); PROTEIN,URINE 30 mg/dL (NEGATIVE); URINE SPECIFIC GRAVITY 1.026
[2020-03-15] MEDS ORDERED: NORMAL SALINE 1000 ML 1,000 ML IV ONE (20:26)
[2020-03-15] MEDS ORDERED: ONDANSETRON HCL INJ/PF 4 MG/2 ML SDV IV ONE (20:27)
[2020-03-15] MEDS ORDERED: MORPHINE SULFATE 10 MG/ML INJ IV ONE (20:27)
[2020-03-15] MEDS ORDERED: PAROXETINE HCL 20 MG TABLET PO ONE (21:02)
--- NOTE | 2020-03-15 21:35 | EKG REPORT ---
SEVERITY:- NORMAL ECG - SINUS RHYTHM : Confirmed by: You Mejia MD 15-Mar-2020 21:34:09
--- NOTE | 2020-03-15 22:19 | RADIOLOGY REPORT (SQ) ---
EXAM DESCRIPTION: CT ABDOMEN PELVIS WITH IV CONTRAST COMPLETED DATE/TME: 03/15/2020 21:05 CLINICAL HISTORY: 85 years, Female, Abdominal pain COMPARISON: Prior CT from 04/10/2015 TECHNIQUE: Contrast enhanced CT of the abdomen/pelvis was acquired. Coronal and sagittal reformations were created. Images were obtained after the uneventful administration of 100 mL of Omnipaque 300 intravenous contrast. Images stored on PACS. All CT scanners at this facility use dose modulation, iterative reconstruction, and/or weight based dosing when appropriate to reduce radiation dose to as low as reasonably achievable (ALARA). [facility]: Dose Right [facility]: CareDose [facility]: Dose Right [facility]: Teradose 4D [facility]: Numonyx LIMITATIONS: None. FINDINGS: Limited evaluation of the lower chest reveals bands of opacity about both lung bases, indicating areas of atelectasis and/or scar. Small hiatal hernia is noted. Liver, spleen, pancreas, and both adrenal glands appear normal. Gallstones are noted about the gallbladder lumen. Both kidneys enhance symmetrically. No hydronephrosis or hydroureter. The urinary bladder is partially collapsed, thus its evaluation is limited. Uterus is absent. Neither ovary is visualized. Visualized is diffuse dilatation of small bowel loops located throughout the abdomen with associated air-fluid levels. A transition point is suspected about the lower abdomen about the distal small bowel, specifically on image 78 of series 3. This appears to be in a very similar location to the previous study dated 04/10/2015. In addition, there are postsurgical changes of partial rectal resection with primary anastomosis. Associated presacral soft tissue thickening persists, unchanged from 04/10/2015. Calcifications are evident about the abdominal aorta and proximal iliac vessels. Additional coarse calcifications are suspected about the distal splenic artery on image 28 of series 3. These were present on the previous examination dated 04/10/2015. No suspicious lymphadenopathy or drainable fluid collections are appreciated. However, there is a trace amount of free fluid located throughout the mesentery. Bone windows show no destructive osseous lesions. IMPRESSION: Findings are consistent with distal small bowel obstruction with transition point located about the low pelvis,. Similar in configuration to the previous exam dated 04/10/2015. Unchanged appearance of rectal resection with primary anastomosis as well as presacral soft tissue thickening when compared to the previous study dated 04/10/2015. Cholelithiasis. Trace free fluid located about the mesentery. TECHNICAL DOCUMENTATION: Quality ID # 436: Final reports with documentation of one or more dose reduction techniques (e.g., Automated exposure control, adjustment of the mA and/or kV according to patient size, use of iterative reconstruction technique) copyright 2011 [employer]- All Rights Reserved
--- NOTE | 2020-03-15 22:26 | ER Document Report ---
ED General - General Chief Complaint: Abdominal Pain Stated Complaint: ABDOMINAL PAIN Time Seen by Provider: 03/15/20 20:10 Notes: 85-year-old woman presents to the emergency department with a complaint of abdominal pain and discomfort for the past 2 days. She has had a bowel movement yesterday, episodes of vomiting x2. She denies fever and prior history of abdominal surgery for remote surgery for colorectal cancer. Patient has been admitted to the hospital on 2 separate occasions with similar presentation. TRAVEL OUTSIDE OF THE [place] IN LAST 30 DAYS: No - Related Data Allergies/Adverse Reactions: ciprofloxacin [From Cipro] Adverse Reaction (Intermediate, Verified 03/15/20 19:22) Change in behavior ciprofloxacin HCl [From Cipro] Adverse Reaction (Intermediate, Verified 03/15/20 19:22) Change in behavior Past Medical History - General Information source: Patient - Social History Smoking Status: Never Smoker Family History: Malignancy - Brother with colon cancer and sister with breast cancer Patient has homicidal ideation: No - Past Medical History Cardiac Medical History: Reports: Hx Hypercholesterolemia, Hx Hypertension Denies: Hx Heart Attack Pulmonary Medical History: Denies: Hx Asthma Neurological Medical History: Denies: Hx Cerebrovascular Accident, Hx Seizures Renal/ Medical History: Denies: Hx Peritoneal Dialysis Malignancy Medical History: Reports: Hx Colorectal Cancer GI Medical History: Denies: Hx Hepatitis, Hx Hiatal Hernia, Hx Ulcer Psychiatric Medical History: Reports: Hx Depression Infectious Medical History: Denies: Hx Hepatitis Past Surgical History: Reports: Hx Abdominal Surgery - colon, Hx Bowel Surgery, Hx Hysterectomy. Denies: Hx Mastectomy, Hx Open Heart Surgery, Hx Pacemaker - Immunizations Immunizations up to date: Yes Hx Diphtheria, Pertussis, Tetanus Vaccination: No - <10 yrs Review of Systems - Review of Systems Notes: Constitutional: Negative for fever. HENT: Negative for sore throat. Eyes: Negative for visual changes. Cardiovascular: Negative for chest pain. Respiratory: Negative for shortness of breath. Gastrointestinal: + Abdominal pain, + nausea, + diarrhea Genitourinary: Negative for dysuria. Musculoskeletal: Negative for back pain. Skin: Negative for rash. Neurological: Negative for headaches, weakness or numbness. 10 point ROS negative except as marked above and in HPI. Physical Exam - Vital signs Vitals: Temp 98.3 F 03/15/20 19:09 - Notes Notes: PHYSICAL EXAMINATION: Physical Exam: General: 85-year-old female mild distress secondary to abdominal pain. HEENT: NC/AT, pupils equal round and reactive to light, MM moist,nares clear, or opharynx clear, airway patent Neck: supple, no adenopathy, no masses. Good range of motion Lungs: clear, no wheezing, no rales no rhonchi CVS: Regular rate and rhythm no murmur gallop or rub Abdomen: Distended abdomen + active, diffuse tenderness, mild guarding, no rebound, no masses, no hepatosplenomegaly Ext: No edema, clubbing or cyanosis. Neuro: Alert and responsive, moving all 4 extremities on command, cranial nerves intact, no focal findings Skin: Intact no open lesions, no rash PSYCH: Normal mood, normal affect. Course - Re-evaluation Re-evalutation: 03/15/20 22:58 CT scan was performed and reveals a small bowel obstruction distended loops of small bowel fluid transition point similar to CT scan 04/2015. NG tube placement is ordered, patient has had medical management of partial small bowel obstruction on 2 prior occasions. Lactate today is normal, WBC count is also normal. Last bowel movement was earlier today. 03/16/20 00:32 Case was discussed with the general surgeon manager investigations Dr. Paez, and he agrees with NG tube intervention and close observation, medical management. Given the patient's history of dementia is felt the patient would do better being managed by the hospital service. Dr. Lezama, contacted and will accept the patient for admission. - Vital Signs Vital signs: Temp Pulse Resp BP Pulse Ox 98.3 F 67 24 H 154/62 H 94 03/15/20 19:18 03/15/20 19:18 03/16/20 00:00 03/15/20 21:00 03/16/20 00:00 - Laboratory Result Diagrams: 03/15/20 19:30 03/15/20 19:30 Laboratory results interpreted by me: 03/15/20 03/15/20 19:30 19:51 Sodium 134.4 L Chloride 93 L BUN 35 H Creatinine 1.61 H Est GFR ( Amer) 37 L Est GFR (MDRD) Non-Af 31 L Glucose 143 H Urine Protein 30 H Urine Ketones TRACE H Urine Urobilinogen 2.0 H 03/15/20 22:59 I have reviewed laboratory data and used this information for the treatment decisions regarding the patient. - Diagnostic Test Radiology reviewed: Image reviewed, Reports reviewed - CT scan abdomen and pelvis with IV contrast only: Findings compatible with small bowel obstruction transition point seen in similar to previous CT scan 04/21 per radiology. Discharge - Discharge Clinical Impression: Small bowel obstruction, partial Abdominal pain Qualifiers: Abdominal location: unspecified location Qualified Code(s): R10.9 - Unspecified abdominal pain Condition: Good Disposition: ADMITTED INPATIENT Admitting Provider: Teja (Hospitalist) Unit Admitted: [facility]
[2020-03-15] MEDS ORDERED: ONDANSETRON HCL INJ/PF 4 MG/2 ML SDV IV PRN (23:43)
[2020-03-15] MEDS ORDERED: LORAZEPAM INJ 2 MG/1 ML VIAL IV ONE (23:43)
[2020-03-15] MEDS ORDERED: IPRATROPIUM/ALBUTEROL 0.5-2.5 MG/3 ML AMPUL NEB PRN (23:43)
[2020-03-15] MEDS ORDERED: MAGNESIUM HYDROXIDE SUSP 30 ML UDCUP PO PRN (23:43)
[2020-03-15] MEDS ORDERED: ACETAMINOPHEN 650 MG SUPP.RECT PR PRN (23:43)
[2020-03-15] MEDS ORDERED: DIAZEPAM INJ 10 MG/2 ML DISP.SYRIN IV PRN (23:46)
[2020-03-15] MEDS ORDERED: METOPROLOL TARTRATE PF/INJ 5 MG/5 ML SDV IV PRN (23:47)
--- NOTE | 2020-03-16 00:10 | PDOC CONSULTATION ---
Consultation Consult Date: 03/16/20 Attending physician:: GABRIEL ORDOÑEZ Provider Consulted: ROMANA SNIDER Consult reason:: abdominal distension,vomiting History of Present Illness Admission Date/PCP: 03/15/20 23:54 MICHELLE VAZQUEZ MD History of Present Illness: SHADI BABCOCK is a 85 year old female 85-year-old woman presents to the emergency department with a complaint of abdominal pain and discomfort for the past 2 days. She has had a bowel movement yesterday, episodes of vomiting x2. She denies fever and prior history of abdominal surgery for remote surgery for colorectal cancer. Patient has been admitted to the hospital on 2 separate occasions with similar presentation. Past Medical History Cardiac Medical History: Reports: Hyperlipidema, Hypertension Denies: Myocardial Infarction Pulmonary Medical History: Denies: Asthma Neurological Medical History: Denies: Seizures Malignancy Medical History: Reports: Colorectal Cancer GI Medical History: Denies: Hepatitis, Hiatal Hernia Psychiatric Medical History: Reports: Depression Hematology: Denies: Anemia, Sickle Cell Disease Past Surgical History Past Surgical History: Reports: Hysterectomy, Other - colorectal cancer surgery Denies: Amputation, Mastectomy, Pacemaker Social History Smoking Status: Never Smoker Frequency of Alcohol Use: None Hx Recreational Drug Use: No Hx Prescription Drug Abuse: No Family History Family History: Malignancy - Brother with colon cancer and sister with breast cancer Parental Family History Reviewed: No Children Family History Reviewed: NA Sibling(s) Family History Reviewed.: NA Medication/Allergy Home Medications: Amitriptyline HCl [Elavil 50 mg Tablet] 50 mg PO QHS 06/26/19 Diazepam [Valium 5 mg Tablet] 5 mg PO Q12 06/26/19 Diltiazem HCl [Cartia Xt] 300 mg PO DAILY 06/26/19 Losartan/Hydrochlorothiazide [Hyzaar 50-12.5 Tablet] 1 each PO DAILY 06/26/19 Paroxetine HCl [Paxil 20 mg Tablet] 20 mg PO QHS 06/26/19 Allergies/Adverse Reactions: ciprofloxacin [From Cipro] Adverse Reaction (Intermediate, Verified 03/15/20 19:22) Change in behavior ciprofloxacin HCl [From Cipro] Adverse Reaction (Intermediate, Verified 03/15/20 19:22) Change in behavior Review of Systems Constitutional: PRESENT: anorexia, weight loss Ears: PRESENT: hearing changes Nose, Mouth, and Throat: ABSENT: as per HPI, headache(s), mouth pain, sore throat, vertigo, other Breasts: ABSENT: as per HPI, other Cardiovascular: ABSENT: as per HPI, chest pain, dyspnea on exertion, edema, orthropnea, palpitations, other Respiratory: ABSENT: as per HPI, cough, dyspnea, hemoptysis, sputum, other Gastrointestinal: PRESENT: abdominal pain, bloating, constipation, nausea, vomiting Genitourinary: ABSENT: as per HPI, difficulty urinating, dysuria, hematuria, nocturia, other Musculoskeletal: ABSENT: as per HPI, back pain, deformity, joint swelling, muscle weakness, other Integumentary: ABSENT: as per HPI, diaphoresis, erythema, lesions, pruritus, rash, wounds, other Neurological: PRESENT: lack of coordination Psychiatric: ABSENT: as per HPI, anxiety, depression, hallucinations, homidical ideation, suicidal ideation, other Endocrine: ABSENT: as per HPI, cold intolerance, flushing, heat intolerance, menstrual abnormalities, polydipsia, polyphagia, polyuria, other Allergic/Immunologic: ABSENT: as per HPI, seasonal rhinorrhea, other Physical Exam Vital Signs: Temp Pulse Resp BP Pulse Ox 98.3 F 67 18 159/64 H 93 03/15/20 19:18 03/15/20 19:18 03/15/20 19:18 03/15/20 19:18 03/15/20 19:18 Intake & Output 03/14/20 03/15/20 03/16/20 06:59 06:59 06:59 Weight 66.224 kg General appearance: PRESENT: hard of hearing, mild distress Head exam: PRESENT: atraumatic Eye exam: PRESENT: EOMI Mouth exam: PRESENT: moist Teeth exam: PRESENT: poor dentation Neck exam: PRESENT: full ROM Respiratory exam: PRESENT: clear to auscultation nadir Cardiovascular exam: PRESENT: RRR Pulses: PRESENT: normal radial pulses, normal femoral pulses Breast: PRESENT: Normal GI/Abdominal exam: PRESENT: distended, soft, other - midline incision Rectal exam: PRESENT: deferred Musculoskeletal exam: PRESENT: full ROM Neurological exam: PRESENT: alert, awake, oriented to person Psychiatric exam: PRESENT: appropriate affect Skin exam: PRESENT: dry Results Laboratory Results: 03/15/20 19:30 03/15/20 19:30 03/15/20 03/15/20 03/15/20 19:30 19:30 19:51 WBC 6.9 RBC 4.50 Hgb 14.6 Hct 41.2 MCV 92 MCH 32.4 MCHC 35.4 RDW 13.6 Plt Count 231 Seg Neutrophils % 69.0 Sodium 134.4 L Potassium 3.9 Chloride 93 L Carbon Dioxide 30 Anion Gap 11 BUN 35 H Creatinine 1.61 H Est GFR ( Amer) 37 L Glucose 143 H Lactic Acid Calcium 9.7 Total Bilirubin 0.6 AST 20 Alkaline Phosphatase 118 Total Protein 7.9 Albumin 4.6 Lipase 42.9 Urine Color DARK YELLOW Urine Appearance SLIGHTLY-CLOUDY Urine pH 5.0 Ur Specific [place] 1.026 Urine Protein 30 H Urine Glucose (UA) NEGATIVE Urine Ketones TRACE H Urine Blood NEGATIVE Urine Nitrite NEGATIVE Ur Leukocyte Esterase NEGATIVE Urine WBC (Auto) 5 Urine RBC (Auto) 5 03/15/20 20:45 WBC RBC Hgb Hct MCV MCH MCHC RDW Plt Count Seg Neutrophils % Sodium Potassium Chloride Carbon Dioxide Anion Gap BUN Creatinine Est GFR ( Amer) Glucose Lactic Acid 0.7 Calcium Total Bilirubin AST Alkaline Phosphatase Total Protein Albumin Lipase Urine Color Urine Appearance Urine pH Ur Specific [place] Urine Protein Urine Glucose (UA) Urine Ketones Urine Blood Urine Nitrite Ur Leukocyte Esterase Urine WBC (Auto) Urine RBC (Auto) Impressions: Abdomen/Pelvis CT 03/15/20 21:05 IMPRESSION: Findings are consistent with distal small bowel obstruction with transition point located about the low pelvis,. Similar in configuration to the previous exam dated 04/10/2015. Unchanged appearance of rectal resection with primary anastomosis as well as presacral soft tissue thickening when compared to the previous study dated 04/10/2015. Cholelithiasis. Trace free fluid located about the mesentery. TECHNICAL DOCUMENTATION: Quality ID # 436: Final reports with documentation of one or more dose reduction techniques (e.g., Automated exposure control, adjustment of the mA and/or kV according to patient size, use of iterative reconstruction technique) copyright 2011 [employer]- All Rights Reserved Assessment & Plan - Plan Summary Plan Summary: pt with nausea, vomiting previous admissions for sbo now with similiar sxs dementia htn ct c/w partial sbo with dilated stomach plan ng to suction, decompression hydration medicine to eval and admit surgery will follow.
[2020-03-16] MEDS: NORMAL SALINE 1000 ML 1,000 ML IV PRN ×2 (02:28→07:05)
--- NOTE | 2020-03-16 04:06 | PDOC H&P ---
History of Present Illness Admission Date/PCP: 03/15/20 23:54 MICHELLE VAZQUEZ MD Patient complains of: Abdominal pain and vomiting History of Present Illness: SHADI BABCOCK is a 85 year old female With a past medical history of hypertension, depression, anxiety, colorectal cancer with remote resection and recurrent small bowel obstruction. She presents with 4 days of abdominal pain and distention developing nausea with vomiting over the last 24 hours prompting evaluation in the emergency department where CT reveals small bowel obstruction, she received symptomatic management and NG tube placement with surgical consultation and referred to the hospitalist for admission. Patient denies recent change in medications and is otherwise felt well. Review of medication reconciliation includes diltiazem unknown risk factor of small bowel obstruction, given her high risk from bowel resection Cardizem will discontinued in favor of Lopressor. Past Medical History Cardiac Medical History: Reports: Hyperlipidema, Hypertension Denies: Myocardial Infarction Pulmonary Medical History: Denies: Asthma Neurological Medical History: Denies: Seizures Malignancy Medical History: Reports: Colorectal Cancer GI Medical History: Denies: Hepatitis, Hiatal Hernia Psychiatric Medical History: Reports: Depression Hematology: Denies: Anemia, Sickle Cell Disease Past Surgical History Past Surgical History: Reports: Hysterectomy, Other - colorectal cancer surgery Denies: Amputation, Mastectomy, Pacemaker Social History Information Source: Patient, [facility] Records Lives with: Family Smoking Status: Never Smoker Electronic Cigarette use?: No Frequency of Alcohol Use: None Hx Recreational Drug Use: No Drugs: None Hx Prescription Drug Abuse: No - Advance Directive Resuscitation Status: Full Code Family History Family History: Malignancy - Brother with colon cancer and sister with breast cancer Parental Family History Reviewed: Yes Children Family History Reviewed: Yes Sibling(s) Family History Reviewed.: Yes Medication/Allergy Home Medications: Amitriptyline HCl [Elavil 50 mg Tablet] 50 mg PO QHS 06/26/19 Diazepam [Valium 5 mg Tablet] 5 mg PO Q12 06/26/19 Diltiazem HCl [Cartia Xt] 300 mg PO DAILY 06/26/19 Losartan/Hydrochlorothiazide [Hyzaar 50-12.5 Tablet] 1 each PO DAILY 06/26/19 Paroxetine HCl [Paxil 20 mg Tablet] 20 mg PO QHS 06/26/19 Allergies/Adverse Reactions: ciprofloxacin [From Cipro] Adverse Reaction (Intermediate, Verified 03/15/20 19:22) Change in behavior ciprofloxacin HCl [From Cipro] Adverse Reaction (Intermediate, Verified 03/15/20 19:22) Change in behavior Review of Systems Constitutional: ABSENT: chills, fever(s), headache(s), weight gain, weight loss Eyes: ABSENT: visual disturbances Ears: ABSENT: hearing changes Cardiovascular: ABSENT: chest pain, dyspnea on exertion, edema, orthropnea, palpitations Respiratory: ABSENT: cough, hemoptysis Gastrointestinal: ABSENT: abdominal pain, constipation, diarrhea, hematemesis, hematochezia, nausea, vomiting Genitourinary: ABSENT: dysuria, hematuria Musculoskeletal: ABSENT: joint swelling Integumentary: ABSENT: rash, wounds Neurological: ABSENT: abnormal gait, abnormal speech, confusion, dizziness, focal weakness, syncope Psychiatric: ABSENT: anxiety, depression, homidical ideation, suicidal ideation Endocrine: ABSENT: cold intolerance, heat intolerance, polydipsia, polyuria Hematologic/Lymphatic: ABSENT: easy bleeding, easy bruising Physical Exam Vital Signs: Temp Pulse Resp BP Pulse Ox 98.5 F 84 20 136/52 H 92 03/16/20 03:15 03/16/20 03:15 03/16/20 03:15 03/16/20 03:15 03/16/20 03:15 Intake & Output 03/14/20 03/15/20 03/16/20 11:59 11:59 11:59 Intake Total 521 Output Total 700 Balance -179 Weight 69.5 kg General appearance: PRESENT: cooperative, mild distress, well-developed, well- nourished Head exam: PRESENT: atraumatic, normocephalic Eye exam: PRESENT: conjunctiva pink, EOMI, PERRLA. ABSENT: scleral icterus Ear exam: PRESENT: normal external ear exam Mouth exam: PRESENT: moist, tongue midline Neck exam: ABSENT: carotid bruit, JVD, lymphadenopathy, thyromegaly Respiratory exam: PRESENT: clear to auscultation nadir. ABSENT: rales, rhonchi, wheezes Cardiovascular exam: PRESENT: RRR. ABSENT: diastolic murmur, rubs, systolic murmur Pulses: PRESENT: normal dorsalis pedis pul Vascular exam: PRESENT: normal capillary refill GI/Abdominal exam: PRESENT: distended, hypoactive bowel sounds, normal bowel sounds, soft, tenderness. ABSENT: guarding, mass, organolmegaly, rebound Rectal exam: PRESENT: deferred Extremities exam: PRESENT: full ROM. ABSENT: calf tenderness, clubbing, pedal edema Neurological exam: PRESENT: alert, awake, oriented to person, oriented to place, oriented to time, oriented to situation, CN II-XII grossly intact. ABSENT: motor sensory deficit Psychiatric exam: PRESENT: appropriate affect, normal mood. ABSENT: homicidal ideation, suicidal ideation Skin exam: PRESENT: dry, intact, warm. ABSENT: cyanosis, rash Results Laboratory Results: 03/15/20 19:30 03/15/20 19:30 03/15/20 03/15/20 03/15/20 19:30 19:30 19:30 WBC 6.9 RBC 4.50 Hgb 14.6 Hct 41.2 MCV 92 MCH 32.4 MCHC 35.4 RDW 13.6 Plt Count 231 Seg Neutrophils % 69.0 Sodium 134.4 L Potassium 3.9 Chloride 93 L Carbon Dioxide 30 Anion Gap 11 BUN 35 H Creatinine 1.61 H Est GFR ( Amer) 37 L Glucose 143 H Lactic Acid Calcium 9.7 Magnesium 2.0 Total Bilirubin 0.6 AST 20 Alkaline Phosphatase 118 Total Protein 7.9 Albumin 4.6 Lipase 42.9 Urine Color Urine Appearance Urine pH Ur Specific [place] Urine Protein Urine Glucose (UA) Urine Ketones Urine Blood Urine Nitrite Ur Leukocyte Esterase Urine WBC (Auto) Urine RBC (Auto) 03/15/20 03/15/20 19:51 20:45 WBC RBC Hgb Hct MCV MCH MCHC RDW Plt Count Seg Neutrophils % Sodium Potassium Chloride Carbon Dioxide Anion Gap BUN Creatinine Est GFR ( Amer) Glucose Lactic Acid 0.7 Calcium Magnesium Total Bilirubin AST Alkaline Phosphatase Total Protein Albumin Lipase Urine Color DARK YELLOW Urine Appearance SLIGHTLY-CLOUDY Urine pH 5.0 Ur Specific [place] 1.026 Urine Protein 30 H Urine Glucose (UA) NEGATIVE Urine Ketones TRACE H Urine Blood NEGATIVE Urine Nitrite NEGATIVE Ur Leukocyte Esterase NEGATIVE Urine WBC (Auto) 5 Urine RBC (Auto) 5 03/15/20 19:30 Troponin I < 0.012 Impressions: Abdomen/Pelvis CT 03/15/20 21:05 IMPRESSION: Findings are consistent with distal small bowel obstruction with transition point located about the low pelvis,. Similar in configuration to the previous exam dated 04/10/2015. Unchanged appearance of rectal resection with primary anastomosis as well as presacral soft tissue thickening when compared to the previous study dated 04/10/2015. Cholelithiasis. Trace free fluid located about the mesentery. TECHNICAL DOCUMENTATION: Quality ID # 436: Final reports with documentation of one or more dose reduction techniques (e.g., Automated exposure control, adjustment of the mA and/or kV according to patient size, use of iterative reconstruction technique) copyright 2011 [employer]- All Rights Reserved Assessment and Plan - Diagnosis (1) Small bowel obstruction, partial Is this a current diagnosis for this admission?: Yes Plan: Complicated by remote bowel surgery and likely adhesions in addition to Cardizem another known risk factor. N.p.o., NG tube decompression, symptomatic management. Cardizem will be discontinued in favor for Lopressor PRN. Follow- up CBC, chemistry and surgical consult. (2) Abdominal pain Qualifiers: Abdominal location: unspecified location Qualified Code(s): R10.9 - Unspecified abdominal pain Is this a current diagnosis for this admission?: Yes Plan: Secondary to #1, NG tube decompression and symptomatic management. (3) Hypertension Is this a current diagnosis for this admission?: Yes Plan: Discontinue Cardizem. Lopressor and hydralazine PRN - Time Time Spent with patient: 25-34 minutes - Inpatient Certification Medical Necessity: Need Close Monitoring Due to Risk of Patient Decompensation
[2020-03-16 04:52] LABS: ABSOLUTE EOSINOPHILS # (AUTO) 0.1 10^3/uL (0.0-0.6); ABSOLUTE LYMPHOCYTES (AUTO) 0.8 10^3/uL (0.5-4.7); ABSOLUTE MONOCYTES (AUTO) 0.6 10^3/uL (0.1-1.4); ABSOLUTE NEUT (AUTO) 3.9 10^3/uL (1.7-8.2); BASOPHILS % (AUTO) 0.2 % (0-2); EOSINOPHILS % (AUTO) 1.2 % (0-6); HEMATOCRIT 37.3 % (36.0-47.0); HEMOGLOBIN 12.9 g/dL (12.0-15.5); LYMPHOCYTES % (AUTO) 14.8 % (13-45); MEAN CORPUSCULAR HEMOGLOBIN 32.2 pg (27.0-33.4); MEAN CORPUSCULAR HGB CONC 34.5 g/dL (32.0-36.0); MEAN CORPUSCULAR VOLUME 93 fl (80-97); MONOCYTES % (AUTO) 11.1 % (3-13); PLATELET COUNT 189 10^3/uL (150-450); RED BLOOD COUNT 3.99 10^6/uL (3.72-5.28); RED CELL DISTRIBUTION WIDTH 13.3 % (11.5-14.0); SEGMENTED NEUTROPHILS % (AUTO) 72.7 % (42-78); TOTAL CELLS COUNTED % (AUTO) 100 %; WHITE BLOOD COUNT 5.3 10^3/uL (4.0-10.5)
[2020-03-16 05:12] LABS: ANION GAP 8 (5-19); BLOOD UREA NITROGEN 29 mg/dL (7-20); CALCIUM 8.3 mg/dL (8.4-10.2); CARBON DIOXIDE 28 mmol/L (22-30); CHLORIDE 98 mmol/L (98-107); GLUCOSE 122 mg/dL (75-110); POTASSIUM 3.8 mmol/L (3.6-5.0)
[2020-03-16] MEDS: HEPARIN SOD (PORCINE) 5,000 UNIT/ML 1 ML VIAL SUBCUT SCH ×3 (06:06→22:19)
--- NOTE | 2020-03-16 13:03 | PDOC PROGRESS REPORT ---
Subjective Progress Note for:: 03/16/20 Subjective:: Patient confused unable to discuss plan secondary to dementia. Reason For Visit: SBO Physical Exam Vital Signs: Temp Pulse Resp BP Pulse Ox 99.4 F 93 16 152/59 H 95 03/16/20 07:48 03/16/20 07:48 03/16/20 07:48 03/16/20 07:48 03/16/20 07:48 Intake & Output 03/15/20 03/16/20 03/17/20 06:59 06:59 06:59 Intake Total 521 923 Output Total 900 Balance -379 923 Weight 69.5 kg General appearance: PRESENT: no acute distress Head exam: PRESENT: normocephalic Eye exam: PRESENT: EOMI Ear exam: PRESENT: normal external ear exam Mouth exam: PRESENT: moist Teeth exam: PRESENT: poor dentation Neck exam: PRESENT: full ROM Respiratory exam: PRESENT: clear to auscultation nadir Cardiovascular exam: PRESENT: RRR Pulses: PRESENT: normal radial pulses, normal femoral pulses Breast: PRESENT: Normal GI/Abdominal exam: PRESENT: soft Rectal exam: PRESENT: deferred Extremities exam: PRESENT: full ROM, tenderness Neurological exam: PRESENT: awake Psychiatric exam: PRESENT: agitated Skin exam: PRESENT: dry Results Laboratory Results: 03/16/20 04:41 03/16/20 04:41 03/15/20 03/15/20 03/15/20 19:30 19:30 19:30 WBC 6.9 RBC 4.50 Hgb 14.6 Hct 41.2 MCV 92 MCH 32.4 MCHC 35.4 RDW 13.6 Plt Count 231 Seg Neutrophils % 69.0 Sodium 134.4 L Potassium 3.9 Chloride 93 L Carbon Dioxide 30 Anion Gap 11 BUN 35 H Creatinine 1.61 H Est GFR ( Amer) 37 L Glucose 143 H Lactic Acid Calcium 9.7 Magnesium 2.0 Total Bilirubin 0.6 AST 20 Alkaline Phosphatase 118 Total Protein 7.9 Albumin 4.6 Lipase 42.9 Urine Color Urine Appearance Urine pH Ur Specific [place] Urine Protein Urine Glucose (UA) Urine Ketones Urine Blood Urine Nitrite Ur Leukocyte Esterase Urine WBC (Auto) Urine RBC (Auto) 03/15/20 03/15/20 03/16/20 19:51 20:45 04:41 WBC 5.3 RBC 3.99 Hgb 12.9 Hct 37.3 MCV 93 MCH 32.2 MCHC 34.5 RDW 13.3 Plt Count 189 Seg Neutrophils % 72.7 Sodium Potassium Chloride Carbon Dioxide Anion Gap BUN Creatinine Est GFR ( Amer) Glucose Lactic Acid 0.7 Calcium Magnesium Total Bilirubin AST Alkaline Phosphatase Total Protein Albumin Lipase Urine Color DARK YELLOW Urine Appearance SLIGHTLY-CLOUDY Urine pH 5.0 Ur Specific [place] 1.026 Urine Protein 30 H Urine Glucose (UA) NEGATIVE Urine Ketones TRACE H Urine Blood NEGATIVE Urine Nitrite NEGATIVE Ur Leukocyte Esterase NEGATIVE Urine WBC (Auto) 5 Urine RBC (Auto) 5 03/16/20 04:41 WBC RBC Hgb Hct MCV MCH MCHC RDW Plt Count Seg Neutrophils % Sodium 134.4 L Potassium 3.8 Chloride 98 Carbon Dioxide 28 Anion Gap 8 BUN 29 H Creatinine 1.17 Est GFR ( Amer) 53 L Glucose 122 H Lactic Acid Calcium 8.3 L Magnesium Total Bilirubin AST Alkaline Phosphatase Total Protein Albumin Lipase Urine Color Urine Appearance Urine pH Ur Specific [place] Urine Protein Urine Glucose (UA) Urine Ketones Urine Blood Urine Nitrite Ur Leukocyte Esterase Urine WBC (Auto) Urine RBC (Auto) 03/15/20 03/16/20 19:30 04:41 Troponin I < 0.012 < 0.012 Impressions: Abdomen/Pelvis CT 03/15/20 21:05 IMPRESSION: Findings are consistent with distal small bowel obstruction with transition point located about the low pelvis,. Similar in configuration to the previous exam dated 04/10/2015. Unchanged appearance of rectal resection with primary anastomosis as well as presacral soft tissue thickening when compared to the previous study dated 04/10/2015. Cholelithiasis. Trace free fluid located about the mesentery. TECHNICAL DOCUMENTATION: Quality ID # 436: Final reports with documentation of one or more dose reduction techniques (e.g., Automated exposure control, adjustment of the mA and/or kV according to patient size, use of iterative reconstruction technique) copyright 2011 [employer]- All Rights Reserved Assessment & Plan - Plan Summary Plan Summary: Impression small bowel obstruction, incomplete. Patient has been admitted multiple times for the similar symptoms and small bowel obstruction. She is tolerating the NG tube suction and her abdominal exam is improved with decreased distention. Patient states she is having bowel movements but is not passing flatus. I discussed possible surgery with the patient who adamantly refuses at this point she states that she would rather succumb to her disease and then have invasive surgery. For now would suggest leaving the NG tube and suction in place on suction We will consider small bowel series tomorrow day after. Will defer to medicine department for discussion with family about end-of-life care. Surgery will consist continue to follow peripherally
--- NOTE | 2020-03-16 14:26 | PDOC PROGRESS REPORT ---
Subjective Progress Note for:: 03/16/20 Subjective:: Patient states that she passed some gas today. However she has not had a bowel movement. Expressing discomfort with NG tube would like it removed. I have explained need to maintain NG tube for now. Nausea has resolved. Abdominal pain is improved since decompression. Reason For Visit: SBO Physical Exam Vital Signs: Temp Pulse Resp BP Pulse Ox 99.4 F 93 16 152/59 H 95 03/16/20 07:48 03/16/20 07:48 03/16/20 07:48 03/16/20 07:48 03/16/20 07:48 Intake & Output 03/15/20 03/16/20 03/17/20 06:59 06:59 06:59 Intake Total 521 1923 Output Total 900 Balance -379 1923 Weight 69.5 kg General appearance: PRESENT: no acute distress, cooperative, hard of hearing Neck exam: ABSENT: JVD Respiratory exam: PRESENT: clear to auscultation nadir, unlabored Cardiovascular exam: PRESENT: +S1, +S2 GI/Abdominal exam: PRESENT: hypoactive bowel sounds - In the upper abdomen but normal in lower quadrants, soft. ABSENT: distended, rebound, rigid, tenderness Neurological exam: PRESENT: alert, awake Psychiatric exam: ABSENT: agitated, anxious Focused psych exam: ABSENT: pressured speech Skin exam: ABSENT: jaundice Results Laboratory Results: 03/16/20 04:41 03/16/20 04:41 03/15/20 03/15/20 03/15/20 19:30 19:30 19:30 WBC 6.9 RBC 4.50 Hgb 14.6 Hct 41.2 MCV 92 MCH 32.4 MCHC 35.4 RDW 13.6 Plt Count 231 Seg Neutrophils % 69.0 Sodium 134.4 L Potassium 3.9 Chloride 93 L Carbon Dioxide 30 Anion Gap 11 BUN 35 H Creatinine 1.61 H Est GFR ( Amer) 37 L Glucose 143 H Lactic Acid Calcium 9.7 Magnesium 2.0 Total Bilirubin 0.6 AST 20 Alkaline Phosphatase 118 Total Protein 7.9 Albumin 4.6 Lipase 42.9 Urine Color Urine Appearance Urine pH Ur Specific [place] Urine Protein Urine Glucose (UA) Urine Ketones Urine Blood Urine Nitrite Ur Leukocyte Esterase Urine WBC (Auto) Urine RBC (Auto) 03/15/20 03/15/20 03/16/20 19:51 20:45 04:41 WBC 5.3 RBC 3.99 Hgb 12.9 Hct 37.3 MCV 93 MCH 32.2 MCHC 34.5 RDW 13.3 Plt Count 189 Seg Neutrophils % 72.7 Sodium Potassium Chloride Carbon Dioxide Anion Gap BUN Creatinine Est GFR ( Amer) Glucose Lactic Acid 0.7 Calcium Magnesium Total Bilirubin AST Alkaline Phosphatase Total Protein Albumin Lipase Urine Color DARK YELLOW Urine Appearance SLIGHTLY-CLOUDY Urine pH 5.0 Ur Specific [place] 1.026 Urine Protein 30 H Urine Glucose (UA) NEGATIVE Urine Ketones TRACE H Urine Blood NEGATIVE Urine Nitrite NEGATIVE Ur Leukocyte Esterase NEGATIVE Urine WBC (Auto) 5 Urine RBC (Auto) 5 03/16/20 04:41 WBC RBC Hgb Hct MCV MCH MCHC RDW Plt Count Seg Neutrophils % Sodium 134.4 L Potassium 3.8 Chloride 98 Carbon Dioxide 28 Anion Gap 8 BUN 29 H Creatinine 1.17 Est GFR ( Amer) 53 L Glucose 122 H Lactic Acid Calcium 8.3 L Magnesium Total Bilirubin AST Alkaline Phosphatase Total Protein Albumin Lipase Urine Color Urine Appearance Urine pH Ur Specific [place] Urine Protein Urine Glucose (UA) Urine Ketones Urine Blood Urine Nitrite Ur Leukocyte Esterase Urine WBC (Auto) Urine RBC (Auto) 03/15/20 03/16/20 19:30 04:41 Troponin I < 0.012 < 0.012 Impressions: Abdomen/Pelvis CT 03/15/20 21:05 IMPRESSION: Findings are consistent with distal small bowel obstruction with transition point located about the low pelvis,. Similar in configuration to the previous exam dated 04/10/2015. Unchanged appearance of rectal resection with primary anastomosis as well as presacral soft tissue thickening when compared to the previous study dated 04/10/2015. Cholelithiasis. Trace free fluid located about the mesentery. TECHNICAL DOCUMENTATION: Quality ID # 436: Final reports with documentation of one or more dose reduction techniques (e.g., Automated exposure control, adjustment of the mA and/or kV according to patient size, use of iterative reconstruction technique) copyright 2011 [employer]- All Rights Reserved Assessment and Plan - Diagnosis (1) Small bowel obstruction, partial Is this a current diagnosis for this admission?: Yes Plan: Complicated by remote bowel surgery and likely adhesions in addition to Cardizem another known risk factor. Passed gas today but still no bowel movements. Maintain n.p.o. NG tube to suction -at risk of hypokalemia. Will continue to monitor and check electrolytes with repletions as needed. Start on D5 lactated Ringer's while n.p.o. Surgery following. (2) Hypoxia Is this a current diagnosis for this admission?: Yes Plan: Noted hypoxic respiratory failure possibly acute in the ER and currently on 4 L nasal cannula. Will check a two-view chest x-ray. (3) Hypertension Is this a current diagnosis for this admission?: Yes Plan: Discontinued Cardizem. Lopressor and hydralazine PRN - Time Time Spent with patient: Less than 15 minutes
--- NOTE | 2020-03-16 16:12 | RADIOLOGY REPORT (SQ) ---
EXAM DESCRIPTION: CHEST 2 VIEWS IMAGES COMPLETED DATE/TIME: 03/16/2020 3:57 pm REASON FOR STUDY: Hypoxia COMPARISON: 06/25/2019 NUMBER OF VIEWS: Two view. TECHNIQUE: Frontal and lateral radiographic views of the chest acquired. LIMITATIONS: None. FINDINGS: LUNGS AND PLEURA: No opacities, masses or pneumothorax. No pleural effusion. Attenuated bl ood vessels and flattened pat-diaphragms. MEDIASTINUM AND HILAR STRUCTURES: No masses. No contour abnormalities. HEART AND VASCULAR STRUCTURES: Heart normal in size and contour. No evidence for failure. BONES: No acute findings. HARDWARE: None in the chest. OTHER: Nasogastric tube in the stomach. IMPRESSION: COPD. NO ACUTE RADIOGRAPHIC FINDING IN THE CHEST. TECHNICAL DOCUMENTATION: JOB ID: [id number] 2010 [employer]- All Rights Reserved Reading location - IP/workstation name: [email or web address]
[2020-03-16] MEDS: DEXTROSE 5%-LACTATED RINGERS 1,000 ML IV PRN (18:00)
[2020-03-16] MEDS ORDERED: DEXTROSE 50%-WATER SYRINGE 12.5 GM/25 ML DOSE IV PRN (20:30)
[2020-03-16] MEDS ORDERED: DEXTROSE 40% GEL 15 GM TUBE PO PRN (20:30)
[2020-03-16] MEDS ORDERED: DEXTROSE 50%-WATER SYRINGE 25 GM/50 ML DOSE IV PRN (20:30)
[2020-03-16] MEDS ORDERED: GLUCAGON,HUMAN RECOMB 1 MG INJ IM PRN (20:30)
[2020-03-16] MEDS ORDERED: DEXTROSE 40% GEL 15 GM TUBE X 2 PO PRN (20:30)
[2020-03-16] MEDS: PAROXETINE HCL 20 MG TABLET PO SCH (22:20)
[2020-03-16] MEDS: AMITRIPTYLINE HCL 50 MG TABLET PO SCH (22:20)
[2020-03-17] MEDS: DEXTROSE 5%-LACTATED RINGERS 1,000 ML IV PRN (03:19)
[2020-03-17] MEDS: HEPARIN SOD (PORCINE) 5,000 UNIT/ML 1 ML VIAL SUBCUT SCH ×3 (05:02→22:58)
[2020-03-17 06:47] LABS: ANION GAP 7 (5-19); BLOOD UREA NITROGEN 11 mg/dL (7-20); CALCIUM 8.5 mg/dL (8.4-10.2); CARBON DIOXIDE 32 mmol/L (22-30); CHLORIDE 96 mmol/L (98-107); GLUCOSE 113 mg/dL (75-110); POTASSIUM 3.1 mmol/L (3.6-5.0)
[2020-03-17] MEDS ORDERED: DEXTROSE 5%-LACTATED RINGERS 1,000 ML with POTASSIUM CHLORIDE 20 MEQ IV PRN ×2 (08:32)
[2020-03-17] MEDS: POTASSI CL 20 MEQ/50 ML RIDER 20 MEQ/50 ML RTUPB IV SCH ×2 (09:21→11:40)
[2020-03-17] MEDS: ENALAPRILAT DIHYDRATE INJ/PF 2.5 MG/2 ML SDV IV SCH ×2 (09:28→17:38)
--- NOTE | 2020-03-17 09:32 | PDOC PROGRESS REPORT ---
Subjective Progress Note for:: 03/17/20 Subjective:: This is an 85-year-old female with a long surgical history involving her abdomen. She has experienced several small bowel obstructions over the last few years. They have all resolved with conservative therapy. Patient has an NG tube in currently. She denies abdominal pain, nausea, vomiting. She does report passing flatus. She does seem mildly confused (I am told this is her baseline). She denies chest pain, shortness of breath, fevers, chills, headache, dizziness, blurry vision. The nurses deny any recent bowel movement. Reason For Visit: SBO Physical Exam Vital Signs: Temp Pulse Resp BP Pulse Ox 97.7 F 84 16 160/71 H 92 03/17/20 07:57 03/17/20 07:57 03/17/20 07:57 03/17/20 07:57 03/17/20 07:57 Intake & Output 03/16/20 03/17/20 03/18/20 06:59 06:59 06:59 Intake Total 521 2855 Output Total 900 503 Balance -379 2352 Weight 69.5 kg 70.1 kg General appearance: PRESENT: no acute distress, cooperative Head exam: PRESENT: atraumatic, normocephalic Eye exam: PRESENT: EOMI, PERRLA. ABSENT: scleral icterus Mouth exam: PRESENT: moist, neck supple Neck exam: ABSENT: tenderness, tracheal deviation Respiratory exam: PRESENT: unlabored. ABSENT: chest wall tenderness, tachypnea, wheezes Cardiovascular exam: ABSENT: tachycardia GI/Abdominal exam: PRESENT: soft. ABSENT: distended, firm, rebound, rigid, tenderness Rectal exam: PRESENT: deferred Extremities exam: ABSENT: clubbing Musculoskeletal exam: ABSENT: deformity Neurological exam: PRESENT: alert, awake Psychiatric exam: ABSENT: agitated, anxious, depressed Focused psych exam: PRESENT: other - Forgetful and easily confused Skin exam: ABSENT: cyanosis, erythema, jaundice Results Laboratory Results: 03/16/20 04:41 03/17/20 05:30 03/17/20 05:30 Sodium 134.6 L Potassium 3.1 L Chloride 96 L Carbon Dioxide 32 H Anion Gap 7 BUN 11 Creatinine 0.74 Est GFR ( Amer) > 60 Glucose 113 H Calcium 8.5 Phosphorus 3.0 Magnesium 1.6 03/15/20 03/16/20 19:30 04:41 Troponin I < 0.012 < 0.012 Impressions: Abdomen/Pelvis CT 03/15/20 21:05 IMPRESSION: Findings are consistent with distal small bowel obstruction with transition point located about the low pelvis,. Similar in configuration to the previous exam dated 04/10/2015. Unchanged appearance of rectal resection with primary anastomosis as well as presacral soft tissue thickening when compared to the previous study dated 04/10/2015. Cholelithiasis. Trace free fluid located about the mesentery. TECHNICAL DOCUMENTATION: Quality ID # 436: Final reports with documentation of one or more dose reduction techniques (e.g., Automated exposure control, adjustment of the mA and/or kV according to patient size, use of iterative reconstruction technique) copyright 2011 [employer]- All Rights Reserved Chest X-Ray 03/16/20 00:00 IMPRESSION: COPD. NO ACUTE RADIOGRAPHIC FINDING IN THE CHEST. Assessment & Plan - Diagnosis (1) Small bowel obstruction, partial Is this a current diagnosis for this admission?: Yes - Plan Summary Plan Summary: This is an 85-year-old female with a small bowel obstruction. She currently has an NG tube in place. Her NG tube appears to be minimally productive. The patient reports passing flatus, however with her baseline confusion I am unsure if this is true. The nurses report no bowel movement overnight. I will maintain her NG tube for now. Her abdomen is currently benign. Repeat x-rays today. Surgery will continue to follow this patient closely with you.
[2020-03-17] MEDS: POTASSI CL 20 MEQ/D5LR 1L 20 MEQ/1,000 ML RTUINJ IV PRN (13:14)
--- NOTE | 2020-03-17 13:22 | RADIOLOGY REPORT (SQ) ---
EXAM DESCRIPTION: KUB/ABDOMEN (SINGLE VIEW) IMAGES COMPLETED DATE/TIME: 03/17/2020 11:47 am REASON FOR STUDY: sbo. Abdominal pain beginning 3 days ago, now feeling better. COMPARISON: CT abdomen and pelvis 03/15/2020 NUMBER OF VIEWS: One view. TECHNIQUE: Supine radiographic image of the abdomen acquired. LIMITATIONS: None. FINDINGS: BOWEL GAS PATTERN: Normal bowel gas pattern. No dilated loops. CALCIFICATIONS: No suspicious calcifications. SOFT TISSUES: No gross mass or suggestion of organomegaly. HARDWARE: None in the abdomen. BONES: No acute fracture. No worrisome bone lesions. OTHER: No other significant finding. IMPRESSION: NO RADIOGRAPHIC EVIDENCE FOR ACUTE ABDOMINAL DISEASE. TECHNICAL DOCUMENTATION: JOB ID: [id number] 2010 [employer]- All Rights Reserved Reading location - IP/workstation name: [email or web address]
--- NOTE | 2020-03-17 14:00 | PDOC PROGRESS REPORT ---
Subjective Progress Note for:: 03/17/20 Subjective:: Patient continues to pass gas. Had a very small smear of bowel movement but nothing substantial. Otherwise denies any abdominal pain, nausea or vomiting. Reason For Visit: SBO Physical Exam Vital Signs: Temp Pulse Resp BP Pulse Ox 97.7 F 84 16 160/71 H 92 03/17/20 07:57 03/17/20 09:28 03/17/20 07:57 03/17/20 09:28 03/17/20 07:57 Intake & Output 03/16/20 03/17/20 03/18/20 06:59 06:59 06:59 Intake Total 521 2855 50 Output Total 900 503 Balance -379 2352 50 Weight 69.5 kg 70.1 kg General appearance: PRESENT: no acute distress, cooperative Head exam: PRESENT: normocephalic Neck exam: ABSENT: JVD Respiratory exam: PRESENT: clear to auscultation nadir, unlabored. ABSENT: tachypnea, wheezes Cardiovascular exam: PRESENT: RRR, +S1, +S2. ABSENT: tachycardia GI/Abdominal exam: PRESENT: hypoactive bowel sounds - Upper quadrants, soft. ABSENT: rebound, rigid, tenderness Neurological exam: PRESENT: alert, awake Psychiatric exam: ABSENT: agitated, anxious Focused psych exam: ABSENT: pressured speech Skin exam: ABSENT: jaundice Results Laboratory Results: 03/16/20 04:41 03/17/20 05:30 03/17/20 05:30 Sodium 134.6 L Potassium 3.1 L Chloride 96 L Carbon Dioxide 32 H Anion Gap 7 BUN 11 Creatinine 0.74 Est GFR ( Amer) > 60 Glucose 113 H Calcium 8.5 Phosphorus 3.0 Magnesium 1.6 03/15/20 03/16/20 19:30 04:41 Troponin I < 0.012 < 0.012 Impressions: Abdomen/Pelvis CT 03/15/20 21:05 IMPRESSION: Findings are consistent with distal small bowel obstruction with transition point located about the low pelvis,. Similar in configuration to the previous exam dated 04/10/2015. Unchanged appearance of rectal resection with primary anastomosis as well as presacral soft tissue thickening when compared to the previous study dated 04/10/2015. Cholelithiasis. Trace free fluid located about the mesentery. TECHNICAL DOCUMENTATION: Quality ID # 436: Final reports with documentation of one or more dose reduction techniques (e.g., Automated exposure control, adjustment of the mA and/or kV according to patient size, use of iterative reconstruction technique) copyright 2011 [employer]- All Rights Reserved Chest X-Ray 03/16/20 00:00 IMPRESSION: COPD. NO ACUTE RADIOGRAPHIC FINDING IN THE CHEST. KUB X-Ray 03/17/20 09:32 IMPRESSION: NO RADIOGRAPHIC EVIDENCE FOR ACUTE ABDOMINAL DISEASE. Assessment and Plan - Diagnosis (1) Small bowel obstruction, partial Is this a current diagnosis for this admission?: Yes Plan: Complicated by remote bowel surgery and likely adhesions in addition to Cardizem another known risk factor. Still no substantial bowel movements but passing gas and had a small smear of stool Maintain n.p.o. NG tube has not been draining all night. KUB this morning shows kinking of the NG tube which is likely the reason he has not been draining and as such will need to be removed. As patient is asymptomatic without nausea, vomiting or abdominal pain still despite NG tube being essentially clamped off given the kink, we will remove the NG tube at this time and simply monitor patient without an NG tube for now. Will place a new NG tube if patient becomes symptomatic again. Continue D5 lactated Ringer's with KCl. Check electrolytes tomorrow. KUB planned for tomorrow (2) Hypoxia Is this a current diagnosis for this admission?: Yes Plan: Patient has significant COPD morphology on x-ray. Chest x-ray is otherwise normal. I suspect patient may have chronic hypoxic respiratory failure secondary to COPD. Will check O2 sats on room air to see if patient qualifies for oxygen. (3) Hypertension Is this a current diagnosis for this admission?: Yes Plan: Discontinued Cardizem. Standing Vasotec IV while patient remains n.p.o. Lopressor and hydralazine PRN - Time Time Spent with patient: 15-24 minutes
[2020-03-17] MEDS: AMITRIPTYLINE HCL 50 MG TABLET PO SCH (22:58)
[2020-03-17] MEDS: PAROXETINE HCL 20 MG TABLET PO SCH (22:58)
[2020-03-18] MEDS ORDERED: HYDRALAZINE HCL INJ/PF 20 MG/1 ML SDV IV ONE (00:45)
[2020-03-18] MEDS: POTASSI CL 20 MEQ/D5LR 1L 20 MEQ/1,000 ML RTUINJ IV PRN ×2 (02:30→19:42)
[2020-03-18] MEDS: HEPARIN SOD (PORCINE) 5,000 UNIT/ML 1 ML VIAL SUBCUT SCH ×3 (06:27→21:39)
[2020-03-18 07:21] LABS: ANION GAP 7 (5-19); BLOOD UREA NITROGEN 9 mg/dL (7-20); CALCIUM 8.9 mg/dL (8.4-10.2); CARBON DIOXIDE 30 mmol/L (22-30); CHLORIDE 98 mmol/L (98-107); GLUCOSE 116 mg/dL (75-110); PHOSPHORUS 3.5 mg/dL (2.5-4.5); POTASSIUM 3.7 mmol/L (3.6-5.0)
--- NOTE | 2020-03-18 08:36 | RADIOLOGY REPORT (SQ) ---
EXAM DESCRIPTION: KUB/ABDOMEN (SINGLE VIEW) IMAGES COMPLETED DATE/TIME: 03/18/2020 8:27 am REASON FOR STUDY: sbo COMPARISON: 03/17/2020 NUMBER OF VIEWS: One view. TECHNIQUE: Supine radiographic image of the abdomen acquired. LIMITATIONS: None. FINDINGS: BOWEL GAS PATTERN: Normal bowel gas pattern. No dilated loops. CALCIFICATIONS: No suspicious calcifications. SOFT TISSUES: No gross mass or suggestion of organomegaly. HARDWARE: NG tube is been removed. Scattered surgical clips are again noted. BONES: No acute fracture. No worrisome bone lesions. OTHER: No other significant finding. IMPRESSION: NO RADIOGRAPHIC EVIDENCE FOR ACUTE ABDOMINAL DISEASE. TECHNICAL DOCUMENTATION: JOB ID: [id number] 2010 [employer]- All Rights Reserved Reading location - IP/workstation name: [email or web address]
[2020-03-18] MEDS: MAGNESIUM SULFATE/D5W 1 GM/100 ML RTUPB IV SCH ×2 (08:40→10:16)
[2020-03-18] MEDS: DIAZEPAM 5 MG TABLET PO SCH ×2 (10:16→21:39)
[2020-03-18] MEDS: ENALAPRILAT DIHYDRATE INJ/PF 2.5 MG/2 ML SDV IV SCH ×2 (10:16→18:32)
--- NOTE | 2020-03-18 10:48 | PDOC PROGRESS REPORT ---
Subjective Progress Note for:: 03/18/20 Subjective:: This is an 85-year-old female with a long surgical history involving her abdomen. She has experienced several small bowel obstructions over the last few years. They have all resolved with conservative therapy. Patient's NG tube was removed yesterday by Dr. Rogel. She denies abdominal pain, nausea, vomiting. She again reports passing flatus. She denies chest pain, shortness of breath, fevers, chills, headache, dizziness, blurry vision. Reason For Visit: SBO Physical Exam Vital Signs: Temp Pulse Resp BP Pulse Ox 97.6 F 88 18 162/73 H 97 03/18/20 07:54 03/18/20 10:16 03/18/20 07:54 03/18/20 10:16 03/18/20 07:54 Intake & Output 03/17/20 03/18/20 03/19/20 06:59 06:59 06:59 Intake Total 2855 2455 100 Output Total 503 600 Balance 2352 1855 100 Weight 70.1 kg 70.2 kg Exam: General appearance: PRESENT: no acute distress, cooperative Head exam: PRESENT: atraumatic, normocephalic Eye exam: PRESENT: EOMI, PERRLA. ABSENT: scleral icterus Mouth exam: PRESENT: moist, neck supple Neck exam: ABSENT: tenderness, tracheal deviation Respiratory exam: PRESENT: unlabored. ABSENT: chest wall tenderness, tachypnea, wheezes Cardiovascular exam: ABSENT: tachycardia GI/Abdominal exam: PRESENT: soft. ABSENT: distended, firm, rebound, rigid, tenderness Rectal exam: PRESENT: deferred Extremities exam: ABSENT: clubbing Musculoskeletal exam: ABSENT: deformity Neurological exam: PRESENT: alert, awake Psychiatric exam: ABSENT: agitated, anxious, depressed Focused psych exam: PRESENT: other - Forgetful and easily confused Skin exam: ABSENT: cyanosis, erythema, jaundice Results Laboratory Results: 03/16/20 04:41 03/18/20 06:34 03/18/20 06:34 Sodium 134.7 L Potassium 3.7 Chloride 98 Carbon Dioxide 30 Anion Gap 7 BUN 9 Creatinine 0.67 Est GFR ( Amer) > 60 Glucose 116 H Calcium 8.9 Phosphorus 3.5 Magnesium 1.5 L 03/15/20 03/16/20 19:30 04:41 Troponin I < 0.012 < 0.012 Impressions: Abdomen/Pelvis CT 03/15/20 21:05 IMPRESSION: Findings are consistent with distal small bowel obstruction with transition point located about the low pelvis,. Similar in configuration to the previous exam dated 04/10/2015. Unchanged appearance of rectal resection with primary anastomosis as well as presacral soft tissue thickening when compared to the previous study dated 04/10/2015. Cholelithiasis. Trace free fluid located about the mesentery. TECHNICAL DOCUMENTATION: Quality ID # 436: Final reports with documentation of one or more dose reduction techniques (e.g., Automated exposure control, adjustment of the mA and/or kV according to patient size, use of iterative reconstruction technique) copyright 2011 [employer]- All Rights Reserved Chest X-Ray 03/16/20 00:00 IMPRESSION: COPD. NO ACUTE RADIOGRAPHIC FINDING IN THE CHEST. KUB X-Ray 03/18/20 06:00 IMPRESSION: NO RADIOGRAPHIC EVIDENCE FOR ACUTE ABDOMINAL DISEASE. Assessment & Plan - Diagnosis (1) Small bowel obstruction, partial Is this a current diagnosis for this admission?: Yes - Plan Summary Plan Summary: This is an 85-year-old female with a small bowel obstruction. Her NG was removed. The patient reports passing flatus. Her abdomen is currently benign. Surgery will sign off at this time. Please renotify with any questions or concerns.
--- NOTE | 2020-03-18 12:38 | PDOC PROGRESS REPORT ---
Subjective Progress Note for:: 03/18/20 Reason For Visit: SBO Patient admitted on 03/15/2020 with small bowel obstruction Physical Exam Vital Signs: Temp Pulse Resp BP Pulse Ox 98.0 F 84 18 161/78 H 96 03/18/20 12:07 03/18/20 12:07 03/18/20 12:07 03/18/20 12:07 03/18/20 12:07 Intake & Output 03/17/20 03/18/20 03/19/20 06:59 06:59 06:59 Intake Total 2855 2455 200 Output Total 503 600 Balance 2352 1855 200 Weight 70.1 kg 70.2 kg 70.2 kg General appearance: PRESENT: no acute distress Respiratory exam: PRESENT: clear to auscultation nadir. ABSENT: rales, rhonchi, wheezes Cardiovascular exam: PRESENT: RRR. ABSENT: diastolic murmur, rubs, systolic murmur GI/Abdominal exam: PRESENT: normal bowel sounds, soft Neurological exam: PRESENT: alert, awake, oriented to person, oriented to place, oriented to time, oriented to situation, CN II-XII grossly intact. ABSENT: motor sensory deficit Psychiatric exam: PRESENT: appropriate affect, normal mood. ABSENT: homicidal ideation, suicidal ideation Results Laboratory Results: 03/16/20 04:41 03/18/20 06:34 03/18/20 06:34 Sodium 134.7 L Potassium 3.7 Chloride 98 Carbon Dioxide 30 Anion Gap 7 BUN 9 Creatinine 0.67 Est GFR ( Amer) > 60 Glucose 116 H Calcium 8.9 Phosphorus 3.5 Magnesium 1.5 L 03/15/20 03/16/20 19:30 04:41 Troponin I < 0.012 < 0.012 Impressions: Abdomen/Pelvis CT 03/15/20 21:05 IMPRESSION: Findings are consistent with distal small bowel obstruction with transition point located about the low pelvis,. Similar in configuration to the previous exam dated 04/10/2015. Unchanged appearance of rectal resection with primary anastomosis as well as presacral soft tissue thickening when compared to the previous study dated 04/10/2015. Cholelithiasis. Trace free fluid located about the mesentery. TECHNICAL DOCUMENTATION: Quality ID # 436: Final reports with documentation of one or more dose reduction techniques (e.g., Automated exposure control, adjustment of the mA and/or kV according to patient size, use of iterative reconstruction technique) copyright 2011 [employer]- All Rights Reserved Chest X-Ray 03/16/20 00:00 IMPRESSION: COPD. NO ACUTE RADIOGRAPHIC FINDING IN THE CHEST. KUB X-Ray 03/18/20 06:00 IMPRESSION: NO RADIOGRAPHIC EVIDENCE FOR ACUTE ABDOMINAL DISEASE. Assessment and Plan - Diagnosis (1) Abdominal pain Qualifiers: Abdominal location: unspecified location Qualified Code(s): R10.9 - Unspecified abdominal pain Is this a current diagnosis for this admission?: Yes (2) Small bowel obstruction, partial Is this a current diagnosis for this admission?: Yes (3) Hypertension Is this a current diagnosis for this admission?: Yes - Plan Summary Summary: 03/18/2020 NG-tube was pulled yesterday Patient is passing flatus but no stool. We will start patient on a clear liquid diet Surgery has signed off Temperature 97.9 pulse 89 blood pressure 158/69 O2 sat 97% on 3 L. Patient's oxygen dropped down to 87% on room air KUB shows no acute abdomen Valium has been reordered 5 mg every 12 hours scheduled Magnesium is low 1.5K riders have been added Patient will be discharge as soon as she is passing stool and using a regular diet CBC is normal - Time Time Spent with patient: 25-34 minutes
[2020-03-18] MEDS: PAROXETINE HCL 20 MG TABLET PO SCH (21:38)
[2020-03-18] MEDS: AMITRIPTYLINE HCL 50 MG TABLET PO SCH (21:39)
[2020-03-19] MEDS: HEPARIN SOD (PORCINE) 5,000 UNIT/ML 1 ML VIAL SUBCUT SCH ×3 (05:55→21:45)
[2020-03-19 06:53] LABS: ANION GAP 8 (5-19); BLOOD UREA NITROGEN 8 mg/dL (7-20); CALCIUM 8.8 mg/dL (8.4-10.2); CARBON DIOXIDE 27 mmol/L (22-30); CHLORIDE 99 mmol/L (98-107); GLUCOSE 117 mg/dL (75-110); POTASSIUM 3.8 mmol/L (3.6-5.0)
[2020-03-19] MEDS: POTASSI CL 20 MEQ/D5LR 1L 20 MEQ/1,000 ML RTUINJ IV PRN ×2 (07:33→21:49)
--- NOTE | 2020-03-19 10:49 | RADIOLOGY REPORT (SQ) ---
EXAM DESCRIPTION: KUB/ABDOMEN (SINGLE VIEW) IMAGES COMPLETED DATE/TIME: 03/19/2020 10:17 am REASON FOR STUDY: SBO COMPARISON: AP view of the abdomen from 03/18/2020. NUMBER OF VIEWS: One view. TECHNIQUE: Supine radiographic image of the abdomen acquired. LIMITATIONS: None. FINDINGS: BOWEL GAS PATTERN: Moderate colorectal fecal burden. There is a surgical bowel anastomosi s in the pelvis. There are no dilated loops of bowel. CALCIFICATIONS: None. SOFT TISSUES: No abnormality. HARDWARE: Surgical clips in the pelvis. BONES: No acute abnormality. OTHER: No other finding. IMPRESSION: Nonobstructive bowel gas pattern. TECHNICAL DOCUMENTATION: JOB ID: [id number] 2010 [employer]- All Rights Reserved Reading location - IP/workstation name: [email or web address]
[2020-03-19] MEDS: ENALAPRILAT DIHYDRATE INJ/PF 2.5 MG/2 ML SDV IV SCH ×2 (11:25→18:06)
[2020-03-19] MEDS: DIAZEPAM 5 MG TABLET PO SCH ×2 (11:25→21:44)
--- NOTE | 2020-03-19 13:03 | PDOC PROGRESS REPORT ---
Subjective Progress Note for:: 03/19/20 Reason For Visit: SBO 03/19/2020 Was admitted for partial small bowel obstruction Physical Exam Vital Signs: Temp Pulse Resp BP Pulse Ox 98.1 F 75 16 174/67 H 95 03/19/20 07:45 03/19/20 11:25 03/19/20 07:45 03/19/20 11:25 03/19/20 07:45 Intake & Output 03/18/20 03/19/20 03/20/20 06:59 06:59 06:59 Intake Total 2455 3167 111 Output Total 600 200 Balance 1855 2967 111 Weight 70.2 kg 71 kg General appearance: PRESENT: mild distress Respiratory exam: PRESENT: clear to auscultation nadir. ABSENT: rales, rhonchi, wheezes Cardiovascular exam: PRESENT: RRR. ABSENT: diastolic murmur, rubs, systolic murmur GI/Abdominal exam: PRESENT: hypoactive bowel sounds, tenderness - Left lower quadrant left upper quadrant tenderness, mild no guarding no rebound Neurological exam: PRESENT: alert, awake, oriented to person, oriented to place, oriented to time, oriented to situation, CN II-XII grossly intact. ABSENT: motor sensory deficit Psychiatric exam: PRESENT: appropriate affect, normal mood. ABSENT: homicidal ideation, suicidal ideation Results Laboratory Results: 03/16/20 04:41 03/19/20 06:24 03/19/20 06:24 Sodium 133.8 L Potassium 3.8 Chloride 99 Carbon Dioxide 27 Anion Gap 8 BUN 8 Creatinine 0.63 Est GFR ( Amer) > 60 Glucose 117 H Calcium 8.8 Magnesium 1.9 03/15/20 03/16/20 19:30 04:41 Troponin I < 0.012 < 0.012 Impressions: Abdomen/Pelvis CT 03/15/20 21:05 IMPRESSION: Findings are consistent with distal small bowel obstruction with transition point located about the low pelvis,. Similar in configuration to the previous exam dated 04/10/2015. Unchanged appearance of rectal resection with primary anastomosis as well as presacral soft tissue thickening when compared to the previous study dated 04/10/2015. Cholelithiasis. Trace free fluid located about the mesentery. TECHNICAL DOCUMENTATION: Quality ID # 436: Final reports with documentation of one or more dose reduction techniques (e.g., Automated exposure control, adjustment of the mA and/or kV according to patient size, use of iterative reconstruction technique) copyright 2011 [employer]- All Rights Reserved Chest X-Ray 03/16/20 00:00 IMPRESSION: COPD. NO ACUTE RADIOGRAPHIC FINDING IN THE CHEST. KUB X-Ray 03/19/20 00:00 IMPRESSION: Nonobstructive bowel gas pattern. Assessment and Plan - Diagnosis (1) Abdominal pain Qualifiers: Abdominal location: unspecified location Qualified Code(s): R10.9 - Unspecified abdominal pain Is this a current diagnosis for this admission?: Yes (2) Small bowel obstruction, partial Is this a current diagnosis for this admission?: Yes (3) Hypertension Is this a current diagnosis for this admission?: Yes (4) COPD (chronic obstructive pulmonary disease) Is this a current diagnosis for this admission?: Yes (5) Hypoxia Is this a current diagnosis for this admission?: Yes (6) Dependence on supplemental oxygen Is this a current diagnosis for this admission?: Yes - Plan Summary Summary: 03/18/2020 NG-tube was pulled yesterday Patient is passing flatus but no stool. We will start patient on a clear liquid diet Surgery has signed off Temperature 97.9 pulse 89 blood pressure 158/69 O2 sat 97% on 3 L. However patient's oxygen dropped down to 87% on room air Patient has COPD and with exertion on room air her oxygen saturation will probably be in the upper 70s or low 80s KUB shows no acute abdomen Valium has been reordered 5 mg every 12 hours scheduled Magnesium is low 1.5K riders have been added Patient will be discharge as soon as she is passing stool and using a regular diet CBC is normal 03/19/2020 Temperature 98.5 pulse 79 blood pressure 160/92 slightly high but this is normal for her. She was on diltiazem 24-hour ER 300 mg daily. It was changed to Lopressor as needed as well as Vasotec IV as needed. Now that patient is taking p.o.'s we will switch her to metoprolol tartrate 25 mg every 12 hours and continue the Vasotec as needed. Patient's diet is being advanced today to full liquid. Patient's KUB from this morning shows a moderate fecal burden to the rectum. We will try a fleets enema Magnesium is come up to 1.9 Waiting for patient to have a normal bowel movement and to be able to take soft or regular diet. Plan to discharge home when that has occurred - Time Time Spent with patient: 25-34 minutes
[2020-03-19] MEDS ORDERED: NA PHOS,M-B/NA PHOS,DI-BA (ADULT) 133 ML ENEMA PR ONE (14:30)
[2020-03-19] MEDS ORDERED: HYDRALAZINE HCL INJ/PF 20 MG/1 ML SDV IV PRN (18:19)
[2020-03-19] MEDS ORDERED: GUAIFENESIN SYRP 200 MG/10 ML UDC PO PRN (20:57)
[2020-03-19] MEDS: ENALAPRIL MALEATE 5 MG TABLET PO SCH (21:43)
[2020-03-19] MEDS: AMITRIPTYLINE HCL 50 MG TABLET PO SCH (21:44)
[2020-03-19] MEDS: PAROXETINE HCL 20 MG TABLET PO SCH (21:45)
[2020-03-19] MEDS ORDERED: METOPROLOL SUCCINATE 25 MG TAB.SR.24H PO SCH (22:00)
[2020-03-20] MEDS: HEPARIN SOD (PORCINE) 5,000 UNIT/ML 1 ML VIAL SUBCUT SCH ×2 (05:22→13:28)
[2020-03-20] MEDS: DIAZEPAM 5 MG TABLET PO SCH (10:11)
[2020-03-20] MEDS: ENALAPRIL MALEATE 5 MG TABLET PO SCH (10:11)
[2020-03-20] MEDS: POTASSI CL 20 MEQ/D5LR 1L 20 MEQ/1,000 ML RTUINJ IV PRN (10:11)
[2020-03-20 14:24] VITALS: BP 176/66
--- NOTE | 2020-03-20 17:33 | PDOC DISCHARGE SUMMARY ---
Impression - Admit/DC Date/PCP Admission Date/Primary Care Provider: 03/15/20 23:54 MICHELLE VAZQUEZ MD Discharge Date: 03/20/20 - Discharge Diagnosis (1) Abdominal pain Is this a current diagnosis for this admission?: Yes (2) Small bowel obstruction, partial Is this a current diagnosis for this admission?: Yes (3) Hypertension Is this a current diagnosis for this admission?: Yes (4) COPD (chronic obstructive pulmonary disease) Is this a current diagnosis for this admission?: Yes (5) Hypoxia Is this a current diagnosis for this admission?: Yes (6) Dependence on supplemental oxygen Is this a current diagnosis for this admission?: Yes - Assessment Summary: 03/18/2020 NG-tube was pulled yesterday Patient is passing flatus but no stool. We will start patient on a clear liquid diet Surgery has signed off Temperature 97.9 pulse 89 blood pressure 158/69 O2 sat 97% on 3 L. However patient's oxygen dropped down to 87% on room air Patient has COPD and with exertion on room air her oxygen saturation will probably be in the upper 70s or low 80s KUB shows no acute abdomen Valium has been reordered 5 mg every 12 hours scheduled Magnesium is low 1.5K riders have been added Patient will be discharge as soon as she is passing stool and using a regular diet CBC is normal 03/19/2020 Temperature 98.5 pulse 79 blood pressure 160/92 slightly high but this is normal for her. She was on diltiazem 24-hour ER 300 mg daily. It was changed to Lopressor as needed as well as Vasotec IV as needed. Now that patient is taking p.o.'s we will switch her to metoprolol tartrate 25 mg every 12 hours and continue the Vasotec as needed. Patient's diet is being advanced today to full liquid. Patient's KUB from this morning shows a moderate fecal burden to the rectum. We will try a fleets enema Magnesium is come up to 1.9 Waiting for patient to have a normal bowel movement and to be able to take soft or regular diet. Plan to discharge home when that has occurred 03/20/2020 Patient is tolerating normal diet and had a small bowel movement yesterday Patient is asking to go home Was instructed to maintain a soft diet through the weekend and follow-up with er primary care in the next 5 to 7 days As written were for Vasotec 5 mg twice daily Patient was admitted on 03/16/2020 with abdominal pain and vomiting with a partial small bowel obstruction. Surgery saw the patient and recommended NG tube and n.p.o. patient was minimally confused during this time on the day following admission patient was passing flatus. NG tube did not appear to be draining much fluid and a KUB was performed which showed leaking of the NG tube which was assumed to be the reason it was not draining. Therefore the hospitalist remove the NG tube and will place a new tube if patient becomes symptomatic. Artisan was discontinued as it was thought to be a possible cause or contributing factor to her bowel obstruction. Patient appeared to be improving and surgery signed off, abdomen appeared benign. Note started on 03/18 time a clear liquid diet was ordered. Patient tolerated that well and was advanced to a full and then a soft diet. Patient did have a small bowel movement prior to discharge. Patient appeared to be medically stable at discharge. Pressure was still elevated 172/60 however she was starting her Vasotec told to follow-up with her primary care provider - Additional Information Resuscitation Status: Full Code Discharge Diet: Other (Comments) Discharge Activity: Balance Activity w/Rest Referrals: MICHELLE VAZQUEZ MD [Primary Care Provider] - 03/27/20 3:15 pm (COMPUTERS ARE DOWN AND THEY WILL CALL) Prescriptions: Enalapril Maleate [Vasotec 5 mg Tablet] 5 mg PO Q12 30 Days #60 tablet Home Medications: Paroxetine HCl [Paxil 20 mg Tablet] 20 mg PO QHS 06/26/19 Amitriptyline HCl [Elavil 50 mg Tablet] 50 mg PO QHS 03/16/20 Diazepam [Valium 5 mg Tablet] 5 mg PO Q12 03/16/20 Diltiazem HCl [Diltiazem 24Hr ER] 300 mg PO DAILY 03/16/20 Acetaminophen [Tylenol 650 mg Supp] 650 mg MO Q4HP PRN supp.rect 03/20/20 Enalapril Maleate [Vasotec 5 mg Tablet] 5 mg PO Q12 30 Days #60 tablet 03/20/20 Guaifenesin [Robitussin Syrup 200 mg/10 ml Ud Cup] 200 mg PO Q4HP PRN udc 03/20/20 Magnesium Hydroxide [Milk of Magnesia 30 ml Udcup] 30 ml PO HSP PRN udc 03/20/20 History of Present Illiness History of Present Illness: SHADI BABCOCK is a 85 year old female Physical Exam Vital Signs: Temp Pulse Resp BP Pulse Ox 99.2 F 83 20 176/66 H 92 03/20/20 14:23 03/20/20 14:23 03/20/20 14:23 03/20/20 14:23 03/20/20 14:23 Intake & Output 03/19/20 03/20/20 03/21/20 06:59 06:59 06:59 Intake Total 3167 1351 1034 Output Total 200 Balance 2967 1351 1034 Weight 71 kg 67.4 kg 67.4 kg Results Laboratory Results: WBC 5.3 10^3/uL (4.0-10.5) 03/16/20 04:41 RBC 3.99 10^6/uL (3.72-5.28) 03/16/20 04:41 Hgb 12.9 g/dL (12.0-15.5) 03/16/20 04:41 Hct 37.3 % (36.0-47.0) 03/16/20 04:41 MCV 93 fl (80-97) 03/16/20 04:41 MCH 32.2 pg (27.0-33.4) 03/16/20 04:41 MCHC 34.5 g/dL (32.0-36.0) 03/16/20 04:41 RDW 13.3 % (11.5-14.0) 03/16/20 04:41 Plt Count 189 10^3/uL (150-450) 03/16/20 04:41 Lymph % (Auto) 14.8 % (13-45) 03/16/20 04:41 Webb % (Auto) 11.1 % (3-13) 03/16/20 04:41 Eos % (Auto) 1.2 % (0-6) 03/16/20 04:41 Baso % (Auto) 0.2 % (0-2) 03/16/20 04:41 Absolute Neuts (auto) 3.9 10^3/uL (1.7-8.2) 03/16/20 04:41 Absolute Lymphs (auto) 0.8 10^3/uL (0.5-4.7) 03/16/20 04:41 Absolute Monos (auto) 0.6 10^3/uL (0.1-1.4) 03/16/20 04:41 Absolute Eos (auto) 0.1 10^3/uL (0.0-0.6) 03/16/20 04:41 Absolute Basos (auto) 0.0 10^3/uL (0.0-0.2) 03/16/20 04:41 Seg Neutrophils % 72.7 % (42-78) 03/16/20 04:41 Sodium 133.8 mmol/L (137-145) L 03/19/20 06:24 Potassium 3.8 mmol/L (3.6-5.0) 03/19/20 06:24 Chloride 99 mmol/L (98-107) 03/19/20 06:24 Carbon Dioxide 27 mmol/L (22-30) 03/19/20 06:24 Anion Gap 8 (5-19) 03/19/20 06:24 BUN 8 mg/dL (7-20) 03/19/20 06:24 Creatinine 0.63 mg/dL (0.52-1.25) 03/19/20 06:24 Est GFR ( Amer) > 60 (>60) 03/19/20 06:24 Est GFR (MDRD) Non-Af > 60 (>60) 03/19/20 06:24 Glucose 117 mg/dL (75-110) H 03/19/20 06:24 POC Glucose 104 mg/dL (70-110) 03/18/20 17:25 Lactic Acid 0.7 mmol/L (0.7-2.1) 03/15/20 20:45 Calcium 8.8 mg/dL (8.4-10.2) 03/19/20 06:24 Phosphorus 3.5 mg/dL (2.5-4.5) 03/18/20 06:34 Magnesium 1.9 mg/dL (1.6-2.3) 03/19/20 06:24 Total Bilirubin 0.6 mg/dL (0.2-1.3) 03/15/20 19:30 Direct Bilirubin 0.0 mg/dL (0.0-0.4) 03/15/20 19:30 Neonat Total Bilirubin Not Reportable 03/15/20 19:30 Neonat Direct Bilirubin Not Reportable 03/15/20 19:30 Neonat Indirect Bili Not Reportable 03/15/20 19:30 AST 20 U/L (14-36) 03/15/20 19:30 ALT 12 U/L (<35) 03/15/20 19:30 Alkaline Phosphatase 118 U/L (38-126) 03/15/20 19:30 Troponin I < 0.012 ng/mL 03/16/20 04:41 Total Protein 7.9 g/dL (6.3-8.2) 03/15/20 19:30 Albumin 4.6 g/dL (3.5-5.0) 03/15/20 19:30 Lipase 42.9 U/L (23-300) 03/15/20 19:30 Urine Color DARK YELLOW 03/15/20 19:51 Urine Appearance SLIGHTLY-CLOUDY 03/15/20 19:51 Urine pH 5.0 (5.0-9.0) 03/15/20 19:51 Ur Specific [place] 1.026 03/15/20 19:51 Urine Protein 30 mg/dL (NEGATIVE) H 03/15/20 19:51 Urine Glucose (UA) NEGATIVE mg/dL (NEGATIVE) 03/15/20 19:51 Urine Ketones TRACE mg/dL (NEGATIVE) H 03/15/20 19:51 Urine Blood NEGATIVE (NEGATIVE) 03/15/20 19:51 Urine Nitrite NEGATIVE (NEGATIVE) 03/15/20 19:51 Urine Bilirubin NEGATIVE (NEGATIVE) 03/15/20 19:51 Urine Urobilinogen 2.0 mg/dL (<2.0) H 03/15/20 19:51 Ur Leukocyte Esterase NEGATIVE (NEGATIVE) 03/15/20 19:51 Urine WBC (Auto) 5 /HPF 03/15/20 19:51 Urine RBC (Auto) 5 /HPF 03/15/20 19:51 U Hyaline Cast (Auto) 40 /LPF 03/15/20 19:51 Urine Bacteria (Auto) TRACE /HPF 03/15/20 19:51 Squamous Epi Cells Auto 1 /HPF 03/15/20 19:51 Urine Mucus (Auto) FEW /LPF 03/15/20 19:51 Urine Ascorbic Acid NEGATIVE (NEGATIVE) 03/15/20 19:51 03/15/20 03/16/20 19:30 04:41 Troponin I < 0.012 < 0.012 Impressions: Abdomen/Pelvis CT 03/15/20 21:05 IMPRESSION: Findings are consistent with distal small bowel obstruction with transition point located about the low pelvis,. Similar in configuration to the previous exam dated 04/10/2015. Unchanged appearance of rectal resection with primary anastomosis as well as presacral soft tissue thickening when compared to the previous study dated 04/10/2015. Cholelithiasis. Trace free fluid located about the mesentery. TECHNICAL DOCUMENTATION: Quality ID # 436: Final reports with documentation of one or more dose reduction techniques (e.g., Automated exposure control, adjustment of the mA and/or kV according to patient size, use of iterative reconstruction technique) copyright 2011 [employer]- All Rights Reserved Chest X-Ray 03/16/20 00:00 IMPRESSION: COPD. NO ACUTE RADIOGRAPHIC FINDING IN THE CHEST. KUB X-Ray 03/17/20 09:32 IMPRESSION: NO RADIOGRAPHIC EVIDENCE FOR ACUTE ABDOMINAL DISEASE. KUB X-Ray 03/18/20 06:00 IMPRESSION: NO RADIOGRAPHIC EVIDENCE FOR ACUTE ABDOMINAL DISEASE. KUB X-Ray 03/19/20 00:00 IMPRESSION: Nonobstructive bowel gas pattern. Stroke Is this a Stroke Patient?: No Acute Heart Failure - Is this a Heart Failure Patient?: No
== END 2020-03-20 15:15 | disposition home health service (06) | DRG 389 ==
LOC: ER 19:09 → EH 23:54 → 3S 03-16 01:00
PROVIDERS: ADMIT Internal Medicine; ATTEND Physician Assistant
DX: K56.600 Partial intestinal obstruction, unspecified as to cause (principal); C19 Malignant neoplasm of rectosigmoid junction; J96.11 Chronic respiratory failure with hypoxia; E78.00 Pure hypercholesterolemia, unspecified; I10 Essential (primary) hypertension; F41.8 Other specified anxiety disorders
CPT/HCPCS: 36415; 51701; 71046; 74018; 74177; 80048; 80053; 81001; 82962; 83605; 83690; 83735; 84100; 84484; 85025; 93005; 93010; 94799; 96361; 96374; 96375; 99285; J0360; J1644; J2060; J2270; J2405; J3360; J3475; J3480; J3490; J7030; J7120; J7121